=== PATIENT | female | born 1935 | race Caucasian/White ===

== ENCOUNTER 2016-05-27 11:14 | Inpatient (IN) | payer MEDICARE ==
[~2016-05-27 11:14] MED LIST changes: -COMMODE 3-IN-11 MIS; -DOCU1CAP39 PO; -DONE5TAB7 PO; -GETGO ROLLING W1 MI1; -HYDR-3516 PO; -HYDR-3583 PO; -NEUR300C PO; -ONCETAB7; -PANT40TA3 PO; -TIZA4 PO
--- NOTE | 2016-05-28 17:10 | MH ---
cc: DEMARIO MARCIAL M.D. Corrected: 06/03/16 DATE OF ADMISSION: 06/03/2016 ADMITTING DIAGNOSIS: Lumbar degenerative disk disease. HISTORY OF PRESENT ILLNESS This is an 80-year-old female presented to us for evaluation of low back pain and left leg pain for 4-5 years. She states the pain radiates into the left posterior thigh and medial calf and then the flow cramps which makes her for her. If she has a bad episode the right leg will also be affected. She states the left leg asael and she has fallen five to six times over the last year from the pain. She has associated paresthesias and left leg with the pain. She feels better with sitting. She had some frequently during the night secondary to pain. She has been to pain management a few years ago and had two sets of epidural steroid injection with Dr. Yepez. She has been to physical therapy which caused more pain. She has tried chiropractic treatments and acupuncture. She has also been seen in 2007 and elected on nonsurgical management. She states that the pain has since gotten worse and she cannot live with her current level of pain and activity restriction and she is requesting surgical intervention. PAST MEDICAL HISTORY 1. Significant for hyperlipidemia 2. Headaches 3. Hand surgery in 1979 4. Cholecystectomy 2009 5. Low back procedure in 1983. She is not sure what the name of the procedure was. MEDICATIONS current medication 1. She takes [place] 5/225 q.6 h p.r.n. pain. 2. Gabapentin 100 mg t.i.d. 3. Simvastatin 20 mg q.h.s. 4. Meloxicam 15 mg p.r.n. this was placed on hold prior to surgical intervention. 5. Zanaflex 4 mg q. hours. Muscle spasms. 6. Benazepril 5 mg q.h.s. 7. Arreno 200 mg daily. This was placed on hold prior to surgical intervention. FAMILY HISTORY Her mother is at 75 year's old had cancer. Her father is at 82 year's old had heart disease. Her sister is alive and 75 year's old. SOCIAL HISTORY She has three children. She lives alone. She does not smoke. She quit in 1969. She drinks alcohol on a rare occasion. REVIEW OF SYSTEMS CONSTITUTIONAL: She denies any fevers or chills. EAR, NOSE, AND THROAT: No fever or chills and ears, nose and throat no pharyngitis, exudates or bloody drainage from her nose CARDIOVASCULAR SYSTEM: She denies any chest pain or palpitations RESPIRATORY: No cough or shortness of breath. GENITOURINARY: No dysuria or hematuria. MUSCULOSKELETAL: Positive for low back pain. SKIN: No rashes. NEUROLOGIC: No difficulty with speech. Positive for his difficulty with memory. GASTROINTESTINAL: No abdominal pain and nausea or vomiting. PSYCHIATRIC: No anxiety or depression symptoms. ENDOCRINE: No polyuria, polydipsia. NEUROLOGIC: Positive for bruising but no bleeding tendencies. PHYSICAL EXAMINATION HEAD, EYES, EARS, NOSE, AND THROAT: Normocephalic, atraumatic. NECK: Supple. No carotid bruits heard on auscultation. LUNGS: The lungs are clear to auscultation bilaterally. HEART: Regular rate and rhythm, normal S1, S2. ABDOMEN: Soft, nontender. Positive bowel sounds. SKIN: Reveals no cyanosis or erythema. MUSCULOSKELETAL: She has 3+/5 left iliopsoas, strength otherwise her strength is 5/5 in lower extremities. She ambulates without any assistive devices. She has an obvious scoliosis. 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 NEUROLOGIC: She is awake, alert and oriented. Cranial nerves II-XII appear grossly intact. His speech is fluent. Comprehension is good. Sensation is decreased in the left lateral thigh, calf and medial calf otherwise intact in the extremities. Comprehension is good. Patellar reflexes 2+ bilaterally. Achilles reflexes are absent bilaterally. DATA REVIEWED: Reviewed MRI of the lumbar spine from April 28, 2015 which reveals extensive multilevel degenerative disk disease and facet arthropathy and associated multilevel spondylolisthesis and scoliosis. There is significant disk height collapse throughout the lumbosacral spine with a grade 1 L4, L5 and L5-S1 spondylolisthesis. There is severe facet hypertrophy in left L4, L5 level with associated severe foraminal stenosis. There is also facet hypertrophy at the L5-S1 level with disk protrusion and associated foraminal stenosis. PLAN We have discussed treatment options with the patient and she stated she is miserable with her level of discomfort and she is requesting that we proceed with surgical intervention. She has multilevel degenerative disk disease with associated spondylolisthesis and facet arthropathy along with scoliosis but worse symptomatic level appears to be the L4-L5 and L5 and S1 levels where there is significant facet arthropathy and disk protrusion and left-sided foraminal stenosis along with small spondylolisthesis. She has failed conservative measures with physical therapy and pain management. She cannot live with the current level discomfort activity restriction. PLAN We have discussed the treatment options with the patient which include a more limited left L4, L5 and L5-S1 laminotomy with foramen on a versus a transforaminal decompression interbody fusion. The procedure as well as the risk benefit, alternative recovery time were spent in great detail with the patient. We have discussed the risks involved surgery, which include but not limited to bleeding, infection, muscle weakness voice hoarseness, difficulty swallowing, heart attack, stroke blood clots, non fusion, scar tissue formation among others. The patient states that she understands the procedure as well as the risks involved and she was therefore scheduled accordingly. Demario Marcial MD DICTATED BY: CHRIS Alexander/jose de jesus /4:07 PM /7:18 AM
[2016-06-03] MEDS ORDERED: VANCOMYCIN HCL 1000 MG ON-CALL/NS 250 ML IV SCH ×2 (06:30)
[2016-06-03] MEDS ORDERED: INSULIN HUMAN REGULAR 1,000 UNITS/10 ML VIAL SQ PRN (06:45)
[2016-06-03] MEDS ORDERED: CHLORHEXIDINE GLUCONATE 2 % 1 PACK (2 CLOTHS) TOPICAL PRN (06:45)
[2016-06-03] MEDS ORDERED: METOPROLOL TARTRATE 25 MG TAB PO PRN (06:45)
[2016-06-03] MEDS ORDERED: SODIUM CHLORID 0.9% 500 ML IV PRN (06:45)
[2016-06-03] MEDS ORDERED: LACTATED RINGER'S 1000 ML IV PRN (06:45)
[2016-06-03] MEDS ORDERED: fentaNYL CITRATE 250 MCG/5 ML AMP ONE (07:26)
[2016-06-03] MEDS ORDERED: MIDAZOLAM HCL 2 MG/2 ML VIAL ONE (07:26)
[2016-06-03] MEDS ORDERED: VANCOMYCIN HCL 1000 MG VIAL ONE (07:45)
[2016-06-03] MEDS ORDERED: THROMBIN (TOPICAL) 5,000 UNIT VIAL ONE (07:45)
[2016-06-03] MEDS ORDERED: BUPIVACAINE/EPINEPHRINE 0.5% PF 30 ML VIAL ONE (07:45)
[2016-06-03] MEDS ORDERED: GELFOAM SIZE 100 ONE (07:45)
[2016-06-03] MEDS: THROMBIN (TOPICAL) 5,000 UNIT VIAL ONE ×2 (10:24→11:24)
[2016-06-03] MEDS ORDERED: ONDANSETRON HCL 4 MG/2 ML VIAL IV PUSH ONE (12:00)
[2016-06-03] MEDS ORDERED: LACTATED RINGER'S 1000 ML INJ 2,000 ML IV ONE (12:00)
[2016-06-03] MEDS ORDERED: ePHEDrine/NS 25 MG/5 ML SYR IV ONE (12:00)
[2016-06-03] MEDS ORDERED: PROPOFOL 200 MG/20 ML AMP IV ONE (12:00)
[2016-06-03] MEDS ORDERED: NEOSTIGMINE 3 MG/3 ML SYR IV ONE (12:00)
[2016-06-03] MEDS ORDERED: SODIUM CHLORID 0.9% 500 ML INJ 500 ML IV ONE (12:00)
[2016-06-03] MEDS ORDERED: ACETAMINOPHEN/HYDROcodone 325 MG/10 MG TAB PO PRN ×2 (13:45)
[2016-06-03] MEDS ORDERED: cloNIDine HCL 0.1 MG TAB PO PRN (13:45)
[2016-06-03] MEDS ORDERED: CYCLOBENZAPRINE HCL 10 MG TAB PO PRN (13:45)
[2016-06-03] MEDS ORDERED: diphenhydrAMINE HCL 50 MG/ML VIAL IV PRN (13:45)
[2016-06-03] MEDS ORDERED: MAGNESIUM HYDROXIDE SUSP 30 ML CUP PO PRN (13:45)
[2016-06-03] MEDS ORDERED: MAGNESIUM SULFATE INJ 2 GM in SODIUM CHLORIDE 0.9% INJ 100 ML IV PRN (13:45)
[2016-06-03] MEDS ORDERED: MENTHOL LOZENGE BUCCAL PRN (13:45)
[2016-06-03] MEDS ORDERED: MORPHINE SULFATE 30 MG/30 ML PCA IV SCH (13:45)
[2016-06-03] MEDS ORDERED: CALCIUM GLUCONATE INJ 1 GM in SODIUM CHLORIDE 0.9% INJ 100 ML IV PRN (13:45)
[2016-06-03] MEDS ORDERED: SODIUM CHLORIDE 0.9% FLUSH 10 ML FLUSH IV FLUSH PRN (13:45)
[2016-06-03] MEDS ORDERED: RESP: ALBUTEROL 2.5 MG/3 ML NEB (PRN) NEB (13:45)
[2016-06-03] MEDS ORDERED: ONDANSETRON HCL 4 MG/2 ML VIAL IV PRN (13:45)
[2016-06-03] MEDS ORDERED: POTASSIUM CHLOR 20 MEQ PREMIX 100 ML IV PRN (13:45)
[2016-06-03] MEDS ORDERED: NALOXONE HCL 0.4 MG/ML AMP IV PRN (13:45)
[2016-06-03] MEDS ORDERED: ALUMINUM/MAGNESIUM/SIMETH 30 ML CUP PO PRN (13:45)
[2016-06-03] MEDS ORDERED: ZOLPIDEM TARTRATE 5 MG TAB PO PRN (13:45)
--- NOTE | 2016-06-03 13:51 | PD.OP ---
cc: Zeinab Rao MD; Gurvinder Kirkland MD Operative Report Date of Surgery: Jun 03, 2016 Preoperative Diagnosis: Severe L4-5 and L5-S1 degenerative disc disease with facet arthropathy and disc protrusion and associated foraminal stenosis; grade 1 L4-5 and L5-S1 spondylolisthesis; postlaminectomy syndrome with extensive epidural fibrosis scar tissue Postoperative Diagnosis: Same Procedure: L4-5 and L5-S1 transforaminal decompression with interbody fusion; L4-S1 pedicle screw fixation; L4-5 and L5-S1 interbody cage placement; L4-5 and L5-S1 epidural scar tissue lysis; microsurgical technique Anesthesia: Gen. endotracheal by Byron Cruz Surgeon: Demario Cummings M.D. Maintenance Service Supervisor(s): Ann Cordero Operation and Findings: Following initiation of general endotracheal anesthesia, the patient had a Swan catheter placed along with sequential compression devices. A gram of vancomycin was administered intravenously and she was turned in a prone position on a Jono frame, on a [place] table, and all pressure points adequately padded. The lumbosacral region was then prepped with Chloraprep and sterilely draped with Ioban along the usual sterile draping. A left paraspinal skin incision was then made extending from the L4-S1 levels after infiltrating the skin with 0.5% Marcaine with epinephrine solution extending down through the fascia. The muscle fibers were split using avascular fatty plane and detached from the underlying facets, transverse process and a self-retaining retractor used for exposure. Intraoperative fluoroscopy was also used for level of confirmation along with microscope magnification for further dissection. There was significant facet and ligamentum flavum hypertrophy noted at the L4- 5 and L5-S1 levels. Wide laminectomy defect with extensive epidural fibrosis and scar tissue was evident. Left L4-5 and L5-S1 facets were resected with a drill bit and there was severe foraminal stenosis from hypertrophied ligamentum flavum and facet along with disc height collapse and degeneration with spondylolisthesis at both levels. The lateral recess and exiting left L4 and L5 nerve roots were decompressed completely. Epidural scar tissue lysis was also undertaken which was very extensive at the elbow L4-5 level wrapping around the exiting nerve root also. There was significant disc height collapse along with disc protrusion also leading to the foraminal stenosis at both levels. Epidural hemostasis was achieved with bipolar cautery and Gelfoam with thrombin. Subsequently entered into the disc space at the L4-5 as well as L5- S1 levels with a #15 blade and rusty were used for discectomy. I then placed PEEK cages packed with local autograft bone and more local autograft bone was packed adjacent to the cage in both interspaces for added interbody fusion. With placement of the cage, I was able to distract the interspace and opened up the foramen further bilaterally. Subsequently in order to facilitate the fusion and provide stabilization, pedicle screw fixation was undertaken using [place] spine screws on entry point at left L4, L5 and S1 levels at the junction of the transverse process and facet. Subsequently using AP and lateral fluoroscopy tap and screw placement. The screws were then connected with a stewart and locked in place with caps. The construct appeared very secure at this point. The area was then copiously irrigated with Vancomycin solution and powder. The retractors were removed and the bipolar cautery used for hemostasis. The muscle fascia was then approximated using 2-0 Vicryl interrupted stitches and then 3-0 Vicryl subcuticular stitches also placed in interrupted fashion. The final skin closure was completed with Dermabond absorbable mesh. A sterile dressing was then applied. The patient then turned in supine position, extubated and taken to recovery room. There were no intraoperative complications. All sponge and needle counts were correct at the end of procedure. Estimated blood loss about 500 ml. Demario Cummings MD Jun 03, 2016 13:51
[2016-06-03] MEDS ORDERED: PROCHLORPERAZINE INJ 10 MG/2 ML VIAL IV PUSH PRN (14:00)
[2016-06-03] MEDS: NS + KCL 20 MEQ INJ 1,000 ML IV SCH ×2 (14:00→20:04)
[2016-06-03] MEDS: PCA - TOTAL MG MORPHINE DELIVERED PER SHIFT SCH ×2 (14:00→21:58)
[2016-06-03 14:12] LABS: AUTOMATED NEUTROPHIL # 7.1 TH/MM3 (1.8-7.7); BASOPHIL % 0.3 % (0.0-2.0); EOSINOPHIL % 0.4 % (0.0-4.0); HEMATOCRIT 31.8 % (35.0-46.0); HEMO FLAGS DIFF FINAL; LYMPHOCYTE # 1.1 TH/MM3 (1.0-4.8); MEAN CELL VOLUME 90.6 FL (80.0-100.0); MEAN CORPUSCULAR HEMOGLOBIN 30.1 PG (27.0-34.0); MEAN CORPUSCULAR HGB CONC 33.2 % (32.0-36.0); MONO % 2.4 % (0.0-8.0); NEUT % 83.9 % (16.0-70.0); PLATELET COUNT 212 TH/MM3 (150-450); RED BLOOD COUNT 3.51 MIL/MM3 (4.00-5.30); RED CELL DISTRIBUTION WIDTH 12.6 % (11.6-17.2); WHITE BLOOD COUNT 8.5 TH/MM3 (4.0-11.0)
[2016-06-03] MEDS ORDERED: *morphine SULFATE 8 MG/ML PERIprocedure ONLY ONE (14:28)
[2016-06-03 14:30] LABS: BICARBONATE 25.7 MEQ/L (21.0-32.0); MAGNESIUM 2.1 MG/DL (1.5-2.5); POTASSIUM 4.2 MEQ/L (3.5-5.1)
--- NOTE | 2016-06-03 14:41 | RADRPT ---
EXAM DATE/TIME: 06/03/2016 08:44 [facility] COMPARISON: No previous studies available for comparison. INDICATIONS : L4-5 L5-S1 fusion. MEDICAL HISTORY : None. SURGICAL HISTORY : None. ENCOUNTER: Initial ACUITY: 1 day PAIN SCORE: Non-responsive. LOCATION: Left L4-5, L5-S1 FINDINGS: Coned-down lateral and oblique views of the lower lumbar spine were obtained using a matrix camera de monstrate the patient is status post multilevel fusion would appear to be the L4-5 and L5-S1 levels w ith pedicle screws and posterior fixation rods. There are metallic markers and bone grafting material and interspaces. There is apparent grade 1 anterior spondylolisthesis of L5 on S1. CONCLUSION: Status post multilevel fusion. Douglas Jama MD on June 03, 2016 at 14:38 Board Certified Radiologist. This report was verified electronically.
[2016-06-03 16:30] VITALS: BP 116/58; PULSE 56; RESP 19; TEMP 95.7; O2SAT 95
[2016-06-03 17:56] VITALS: O2SAT 99
[2016-06-03] MEDS ORDERED: GABAPENTIN 100 MG CAP PO SCH (18:00)
[2016-06-03 20:00] VITALS: BP 120/56; PULSE 54; RESP 20; TEMP 97.4; O2SAT 97
[2016-06-03] MEDS: SODIUM CHLORIDE 0.9% FLUSH 10 ML FLUSH IV FLUSH SCH (20:05)
[2016-06-03] MEDS: DOCUSATE SODIUM 100 MG CAP PO SCH (20:05)
[2016-06-03] MEDS: PRAVASTATIN SOD 40 MG TAB PO SCH (20:05)
[2016-06-03] MEDS: DONEPEZIL HCL 5 MG TAB PO SCH (20:05)
[2016-06-03] MEDS: SODIUM CHLOR 0.9% 1000 ML INJ 1,000 ML IV SCH (20:06)
[2016-06-03 22:02] VITALS: O2SAT 98
[2016-06-04] VITALS (11 sets, daily range): BP systolic 101–148; BP diastolic 51–83; PULSE 50–71; RESP 16–20; TEMP 95.1–98.8; O2SAT 93–100
[2016-06-04] MEDS: PCA - TOTAL MG MORPHINE DELIVERED PER SHIFT SCH ×3 (06:00→22:00)
[2016-06-04] MEDS: GABAPENTIN 100 MG CAP PO SCH ×3 (07:55→18:00)
[2016-06-04] MEDS: MULTIVITAMIN TAB PO SCH (07:56)
[2016-06-04] MEDS: DOCUSATE SODIUM 100 MG CAP PO SCH ×2 (07:56→21:00)
[2016-06-04] MEDS: PANTOPRAZOLE SOD 40 MG DELAYED RELEASE TAB PO SCH (07:56)
[2016-06-04] MEDS: POLYETHYLENE GLYCOL 17 GM PKG PO SCH (07:56)
[2016-06-04] MEDS: SODIUM CHLORIDE 0.9% FLUSH 10 ML FLUSH IV FLUSH SCH ×2 (07:56→21:49)
[2016-06-04] MEDS ORDERED: SOLIFENACIN 5 MG PO SCH (09:00)
--- NOTE | 2016-06-04 09:20 | HHI.NSPN ---
(Martin Puentes) History Chief Complaint: Incisional back pain. (Martin Puentes) Interval History 06/04/16: Pt s/p L4/L5 and L5/S1 TLIF with cage and pedicle screw fixation on . She is sitting up in chair this morning. Complains of incisional pain controlled with [employer]. She denies any radiculopathy in her legs so far. She has not ambulated far yet on POD 1. (Martin Puentes) Review of Systems General: Negative for: fever, chills, insomnia Respiratory: Negative for: shortness of breath, cough, sputum Cardiovascular: Negative for: chest pain Gastrointestinal: Negative for: nausea, vomitting, diarrhea, constipation ( Martin Puentes) Exam Results Vital Signs Date Time Temp Pulse Resp B/P Pulse Ox O2 Delivery O2 Flow Rate FiO2 06/04/16 07:26 97.7 51 17 121/57 96 06/03/16 22:02 Nasal Cannula 2.00 Intake and Output 06/03/16 06/03/16 06/04/16 08:00 16:00 00:00 Intake Total 3000 ml 1080 ml Output Total 1325 ml 950 ml Balance 1675 ml 130 ml (Martin Puentes) Physical Examination Heart: NSR no murmurs Abd: Soft positive bs Skin: No cyanosis or erythema Muscle: Moves all 4 extremities with good strength. Neuro: Pt awake and alert. Follows commands well. Speech clear and appropriate. (Martin Puentes) Lab, Micro, Other Results Last Impressions Lumbar Spine X-Ray 06/03/16 0000 Signed Impressions: Service Date/Time: May 08:44 - CONCLUSION: Status post multilevel fusion. Douglas Jama MD Laboratory Tests Test 06/03/16 14:00 White Blood Count 8.5 TH/MM3 Red Blood Count 3.51 MIL/MM3 Hemoglobin 10.6 GM/DL Hematocrit 31.8 % Mean Corpuscular Volume 90.6 FL Mean Corpuscular Hemoglobin 30.1 PG Mean Corpuscular Hemoglobin 33.2 % Concent Red Cell Distribution Width 12.6 % Platelet Count 212 TH/MM3 Mean Platelet Volume 7.6 FL Neutrophils (%) (Auto) 83.9 % Lymphocytes (%) (Auto) 13.0 % Monocytes (%) (Auto) 2.4 % Eosinophils (%) (Auto) 0.4 % Basophils (%) (Auto) 0.3 % Neutrophils # (Auto) 7.1 TH/MM3 Lymphocytes # (Auto) 1.1 TH/MM3 Monocytes # (Auto) 0.2 TH/MM3 Eosinophils # (Auto) 0.0 TH/MM3 Basophils # (Auto) 0.0 TH/MM3 CBC Comment DIFF FINAL Differential Comment Sodium Level 144 MEQ/L Potassium Level 4.2 MEQ/L Chloride Level 111 MEQ/L Carbon Dioxide Level 25.7 MEQ/L Anion Gap 7 MEQ/L Blood Urea Nitrogen 23 MG/DL Creatinine 0.90 MG/DL Estimat Glomerular Filtration 60 ML/MIN Rate Random Glucose 131 MG/DL Calcium Level 9.0 MG/DL Magnesium Level 2.1 MG/DL 06/03/16 06/03/16 06/04/16 15:00 23:00 07:00 Intake Total 2500 ml 1580 ml 874 ml Output Total 900 ml 1375 ml 1100 ml Balance 1600 ml 205 ml -226 ml Intake Oral 480 ml IV Total 1100 ml 874 ml Other 2500 ml Output Urine Total 400 ml 1375 ml 1100 ml Estimated Blood Loss 500 ml (Martin Puentes) Medical Decision Making Impression and Plan A: 80 y/o FM s/p L4/L5 and L5/S1 TLIF with cage and pedicle screw fixation. P: Continue with pain control Continue with PT (Martin Puentes) Attending Statement The exam, history, and the medical decision-making described in the above note were completed with the assistance of the mid-level provider. I reviewed and agree with the findings presented. I attest that I had a [id number] encounter with the patient on the same day, and personally performed and documented my assessment and findings in the medical record. Incisional pain well controlled and the left lower extremity radicular symptoms have resolved. Continue with [employer] and switched to by mouth pain medications tomorrow. Plan inpatient rehabilitation placement. (eDmario Cummings MD) Martin Puentes Jun 04, 2016 09:20 Demario Cummings MD Jun 04, 2016 17:03
[2016-06-04] MEDS: NS + KCL 20 MEQ INJ 1,000 ML IV SCH (14:43)
[2016-06-04] MEDS ORDERED: LORazepam 2 MG/ML VIAL ONE (17:08)
--- NOTE | 2016-06-04 17:22 | PD.CONS ---
[facility] Service Critical Care Medicine Consult Requested By Dr. Cummings Reason for Consult Possible new onset seizures Primary Care Physician Gurvinder Kirkland MD History of Present Illness Patient is a 80-year-old female with past medical history significant for dyslipidemia and previous back surgeries who underwent L4/L5 and L5/S1 TLIF with cage and pedicle screw fixation on 06/03/16. Postop period was unremarkable. Today afternoon patient was noted to have 2 episodes of seizure- like activity where she had tonic-clonic jerking of bilateral upper and lower extremities. She did not loose consciousness, and was able to follow commands through this. Patient was moved emergently to the ICU where she had 2 more episodes. Received total of 1 mg Ativan with resolution of symptoms. No history of seizure disorder, takes Neurontin for neuropathy. A stat CT of the head had been ordered, as well as a stat EEG. Loading dose of Keppra 1 gm given. Ruiz culture and blood work pending at this time. Neurology consult requested and d/w Dr. Hong Review of Systems ROS Limitations: Other (as per HPI) Past Family Social History Allergies: Coded Allergies: Adhesives (Verified Allergy, Severe, RASH, 05/27/16) Iodine (Verified Allergy, Severe, RASH, 05/27/16) Latex (Verified Allergy, Severe, 05/27/16) Shellfish (Verified Allergy, Severe, RASH, 05/27/16) Past Medical History Dyslipidemia Headaches Past Surgical History Hand surgery in 1979 Cholecystectomy 2010 Low back procedure in 1983. Reported Medications [place] 5/225 q.6 h p.r.n. pain. Gabapentin 100 mg t.i.d. Simvastatin 20 mg q.h.s. Meloxicam 15 mg p.r.n. Zanaflex 4 mg q. hours. Benazepril 5 mg q.h.s. Aggrenox Active Ordered Medications Reviewed Family History Reviewed Social History Occasional alcohol Physical Exam Vital Signs Vital Signs Date Time Temp Pulse Resp B/P Pulse Ox O2 Delivery O2 Flow Rate FiO2 06/04/16 15:47 95.7 50 17 105/53 98 06/04/16 13:45 96 21 06/04/16 11:18 95.1 50 17 101/51 95 06/04/16 07:50 Room Air 06/04/16 07:26 97.7 51 17 121/57 96 06/04/16 06:00 17 06/04/16 04:00 97.4 61 17 127/63 99 06/04/16 00:00 96.9 51 16 106/52 98 06/03/16 22:02 98 Nasal Cannula 2.00 06/03/16 21:58 17 06/03/16 20:04 98 Nasal Cannula 3.00 06/03/16 20:00 97.4 54 20 120/56 97 06/03/16 17:56 99 Nasal Cannula 3.00 Physical Exam GEN: 80 yo female having jerking movements involving bilateral upper and lower extremities HEENT: Normocephalic, atraumatic. NECK: Supple. No carotid bruits heard on auscultation. LUNGS: The lungs are clear to auscultation bilaterally. HEART: Regular rate and rhythm, normal S1, S2. ABDOMEN: Soft, nontender. Positive bowel sounds. SKIN: Reveals no cyanosis or erythema. NEUROLOGIC: She is awake, alert and oriented. Cranial nerves II-XII appear grossly intact. Normal speech. Intermittent jerking seizure like movements involving bilateral upper and lower extremities. Result Diagram: 06/03/16 1400 06/03/16 1400 Imaging CXR No acute disease Assessment and Plan Assessment and Plan NEURO: Possible seizures vs myoclonus s/p L4/L5 and L5/S1 TLIF with cage and pedicle screw fixation on 06/03/16 Small amount of pneumocephalus from recent lumbar surgery -STAT EEG, and CT head -IV Keppra 1GM loading dose and 500 mg IV q12 -Consult neurology -Seizure precautions -Ativan 1 mg IV q 2 hours prn for seizures -Post op management per Dr. Cummings -Continue Neurontin. Hold Aggrenox RESP: -Nasal cannula oxygen to keep SaO2 >90% -DuoNeb q2 prn CV: -Normal saline IV fluids -Continue Statin -Monitor BP and HR GI: -NPO except meds. IV Protonix : Monitor renal function closely. Place Swan catheter. ID: -F/u blood urine and sputum cultures. Received perioperative antibiotics per HEME: -Monitor CBC, CMP, coags ENDO: -Electrolyte replacement per protocol PROPH: -Bilateral lower extremity SCDs. TEDs. Chemical DVT prophylaxis only when cleared by N/S LINES: -Utilize peripheral IVs, central line if needed CC time 45 min Code Status Full Discussed Condition With Veto Abdalla Sinoj K. MD Jun 04, 2016 17:22
[2016-06-04] MEDS ORDERED: LORazepam 2 MG/ML VIAL IV PUSH PRN (17:30)
[2016-06-04] MEDS ORDERED: levETIRAcetam 1000 MG INJ 100 ML IV ONE (17:30)
[2016-06-04] MEDS ORDERED: LORazepam 2 MG/ML VIAL IV PUSH ONE (17:30)
--- NOTE | 2016-06-04 17:43 | RADRPT ---
EXAM DATE/TIME: 06/04/2016 17:23 [facility] COMPARISON: No previous studies available for comparison. INDICATIONS : Evaluate for pneumonia. Shortness of breath. MEDICAL HISTORY : None. SURGICAL HISTORY : None. ENCOUNTER: Subsequent ACUITY: 1 day PAIN SCORE: 0/10 LOCATION: Bilateral chest FINDINGS: A single view of the chest demonstrates the lungs to be symmetrically aerated without evidence of mas s, infiltrate or effusion. The cardiomediastinal contours are unremarkable. Osseous structures are intact. CONCLUSION: No acute disease. Douglas Jama MD on June 04, 2016 at 17:39 Board Certified Radiologist. This report was verified electronically.
[2016-06-04 17:49] LABS: MEAN CELL VOLUME 91.9 FL (80.0-100.0); MEAN CORPUSCULAR HEMOGLOBIN 30.4 PG (27.0-34.0); MEAN CORPUSCULAR HGB CONC 33.1 % (32.0-36.0); PLATELET COUNT 153 TH/MM3 (150-450); RED BLOOD COUNT 2.72 MIL/MM3 (4.00-5.30); RED CELL DISTRIBUTION WIDTH 12.5 % (11.6-17.2); REVIEW FLAG FINAL; WHITE BLOOD COUNT 7.6 TH/MM3 (4.0-11.0)
--- NOTE | 2016-06-04 18:08 | RADRPT ---
EXAM DATE/TIME: 06/04/2016 17:51 [facility] COMPARISON: No previous studies available for comparison. INDICATIONS : Seizures starting today. RADIATION DOSE: 41.25 CTDIvol (mGy) MEDICAL HISTORY : CVA SURGICAL HISTORY : None. ENCOUNTER: Initial ACUITY: 1 day PAIN SCALE: Non-responsive LOCATION: Bilateral cranial TECHNIQUE: Multiple contiguous axial images were obtained of the head. Using automated exposure control and adj ustment of the mA and/or kV according to patient size, radiation dose was kept as low as reasonably a chievable to obtain optimal diagnostic quality images. FINDINGS: CEREBRUM: The ventricles are normal for age. No evidence of midline shift, mass lesion, hemorrhage or acute in farction. There is air within the fossa lateral ventricles and in the subarachnoid space in the right mahsa-pontine cisterna lateral to the libia. The patient had recent back surgery. No extra-axial fluid collections are seen. POSTERIOR FOSSA: The cerebellum and brainstem are intact. The 4th ventricle is midline. The cerebellopontine angle i s unremarkable. EXTRACRANIAL: The visualized portion of the orbits is intact. SKULL: The calvaria is intact. No evidence of skull fracture. CONCLUSION: Intracranial air. The patient had recent lumbar surgery. No acute areas of hemorrhage or mass effect are seen. Veto Philippe MD on June 04, 2016 at 18:02 Board Certified Radiologist. This report was verified electronically.
[2016-06-04 18:25] LABS: ALKALINE PHOSPHATASE 48 U/L (45-117); ALT (GPT) 23 U/L (10-53); ANION GAP 3 MEQ/L (5-15); AST (GOT) 34 U/L (15-37); BICARBONATE 26.4 MEQ/L (21.0-32.0); BLOOD UREA NITROGEN 12 MG/DL (7-18); CHLORIDE 115 MEQ/L (98-107); GLOMERULAR FILTRATION RATE 86 ML/MIN (>89); MAGNESIUM 1.7 MG/DL (1.5-2.5); POTASSIUM 6.2 MEQ/L (3.5-5.1); SODIUM (NA) 144 MEQ/L (136-145); TOTAL BILIRUBIN ADULT 0.4 MG/DL (0.2-1.0)
[2016-06-04] MEDS ORDERED: MAGNESIUM SULFATE 1 GM PREMIX 100 ML IV ONE (18:45)
[2016-06-04] MEDS ORDERED: SODIUM BICARBONATE 8.4% INJ 50 MEQ/50 ML SYR IV PUSH ONE (18:45)
[2016-06-04] MEDS ORDERED: INSULIN HUMAN REGULAR 1,000 UNITS/10 ML VIAL IV PUSH ONE (18:45)
[2016-06-04] MEDS ORDERED: DEXTROSE 50% IN WATER 50 ML SYRINGE IV ONE (18:45)
[2016-06-04] MEDS ORDERED: CALCIUM GLUCONATE 10% 1 GM/10 ML VIAL ONE (18:46)
--- NOTE | 2016-06-04 19:57 | MG ---
cc: RAMÓN BERUMEN Lab No: [id number] Date: 06/04/16 Age: 80 Sex: F Race: REFERRING PHYSICIAN Dr. Laws TECHNIQUE 17 channel EEG. DESCRIPTION The background rhythm reveals mild slowing mainly in the theta range at about 5-6 Hz. Amplitude is roughly 10-20 microvolts. There is a prominent muscle artifact. No lateralizing features are identified. There are no epileptiform features seen. Photic stimulation was done in a stepwise fashion with no significant driving response. Hyperventilation was not done. INTERPRETATION The study reveals mild to moderate slowing in the theta range consistent with a mild to moderate encephalopathy. No epileptiform discharges are present. MD JOSE Bond/MARBELLA /7:26 PM /7:41 PM
[2016-06-04] MEDS ORDERED: CALCIUM GLUCONATE INJ 1 GM in SODIUM CHLORIDE 0.9% INJ 100 ML IV ONE (20:00)
[2016-06-04] MEDS ORDERED: ATROPINE SULFATE 1 MG/10 ML SYRINGE ONE (20:14)
[2016-06-04] MEDS ORDERED: EPINEPHrine HCL (1:10,000) 1 MG/10 ML SYRINGE ONE (20:14)
[2016-06-04] MEDS ORDERED: LIDOCAINE HCL 2% 100 MG/5 ML SYRINGE ONE (20:14)
[2016-06-04] MEDS: DONEPEZIL HCL 5 MG TAB PO SCH (21:00)
[2016-06-04] MEDS: PRAVASTATIN SOD 40 MG TAB PO SCH (21:00)
[2016-06-04] MEDS: SODIUM CHLORIDE 0.9% IV SCH (21:48)
[2016-06-04] MEDS: VALPROATE IV SCH (21:48)
--- NOTE | 2016-06-04 21:58 | RADRPT ---
EXAM DATE/TIME: 06/04/2016 21:13 [facility] COMPARISON: No previous studies available for comparison. INDICATIONS : Radiculopathy. RADIATION DOSE: 21.36 CTDIvol (mGy) MEDICAL HISTORY : Cerebrovascular disease. SURGICAL HISTORY : None. ENCOUNTER: Initial ACUITY: 1 day PAIN SCALE: Non-responsive LOCATION: Neck TECHNIQUE: Volumetric scanning of the cervical spine was performed. Multiplanar reconstructions i n the sagittal, coronal and oblique axial planes were performed. Using automated exposure control a nd adjustment of the mA and/or kV according to patient size, radiation dose was kept as low as reason ably achievable to obtain optimal diagnostic quality images. FINDINGS: The craniovertebral junction is intact. The C1 ring is intact. The C1-C2 articulation and dens are intact. The cervical vertebral bodies are normal in height. There is 3 mm of anterior subluxation of C4 on C5 likely secondary to facet hypertrophy. There is 2 mm of posterior subluxati on of C5 on C6 likely secondary to facet hypertrophy. C2-C3: The posterior disc margins intact. The neural foramina are normal. There is mild facet hype rtrophy bilaterally being worse on the left. C3-C4: There is an impression on the anterior left side of the thecal sac likely secondary to asymme tric disc bulge versus protrusion with accompanying osteophyte formation. There is bilateral uncover tebral hypertrophy and facet hypertrophy. There is mild narrowing of the left neural foramina. The r ight neural foramina appears grossly intact. C4-C5: Again noted is the anterior subluxation of C4 on C5. There is bilateral facet and uncoverteb ral hypertrophy. There is narrowing of the neural foramina bilaterally. C5-C6: Disc space is narrowed. There is posterior osteophytic ridging. There is uncovertebral and f acet hypertrophy. There is some degree of narrowing of the neural foramina bilaterally. C6-C7: Disc space is narrowed. A significant impression on the thecal sac is not seen. There is unc overtebral and facet hypertrophy. There is mild neural foraminal narrowing. C7-T1: Intact. CONCLUSION: Degenerative change as described above. An acute bony abnormality is not seen. Veto Philippe MD on June 04, 2016 at 21:44 Board Certified Radiologist. This report was verified electronically.
[2016-06-04] MEDS: DEXT 5%-NACL 0.9% 1000 ML INJ 1,000 ML IV SCH (22:54)
--- NOTE | 2016-06-04 23:07 | MB ---
cc: RAMÓN BERUMEN DATE OF CONSULTATION 06/04/16 REASON FOR CONSULTATION Upper extremity myoclonic activity. HISTORY OF PRESENT ILLNESS Ms. Matthews is an 80-year-old female who has a history of lumbar spondylosis. She underwent lumbar spine surgery yesterday. Today, she developed generalized jerking like activity, tonic-clonic activity of both lower extremities, also the upper extremities. She had continuous episodes, received Ativan with resolution of the symptoms. She has been placed on Keppra but continues to have the jerking episodes. I reviewed the electroencephalogram and that does not show any type of seizure activity. No epileptiform discharges. PAST MEDICAL HISTORY 1. History of lumbar spondylosis 2. history of previous lumbar spine surgery, 3. Cholecystectomy, 4. Hyperlipidemia. MEDICATIONS Current medications are 1. Keppra 500 mg q.6 h. 2. Magnesium sulfate 3. Ativan 4. Protonix 40 mg daily. 5. MiraLax, 6. Gabapentin 200 mg t.i.d. 7. Aricept 5 mg daily. 8. Pravachol 40 mg daily. 9. Zanaflex 4 mg t.i.d. NEUROLOGIC EXAMINATION VITAL SIGNS: Blood pressure 140/59, pulse is 60, respiratory rate is 20, temperature 98 degrees. She is lethargic but follows commands. Cranial nerves are intact. On motor exam, she has myoclonic twitching activity in both upper extremities which is nearly continuous. It gets worse when she raises her arms though. She is able to move both upper and lower extremities symmetrically. Reflexes symmetric. There is no Babinski sign present. IMAGING STUDIES CT of the brain shows air present in the lateral ventricle subarachnoid space in the right pontine cistern area probably related to her recent back surgery. No hemorrhage is identified. No acute changes seen. LABORATORY DATA White count 7600, hemoglobin 8.3, hematocrit 25%, platelets 153,000. Sodium is 144, potassium 4.2, chloride 111, CO2 is 25.7. The BUN is 23, creatinine is 0.9, GFR 60, glucose is 130, AST 74, ALT is 23. 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 RECOMMENDATIONS We will start the patient on Depakote, continue the Keppra. Check additional labs such as B12 level, thyroid, serum ammonia. Also get a CT of the cervical spine to be sure there is no cervical cord pathology. MD JOSE Bond/ /7:30 PM /10:52 PM
[2016-06-04] MEDS: levETIRAcetam INJ 500 MG in SODIUM CHLORIDE 0.9% INJ 100 ML IV SCH (23:59)
[2016-06-05] VITALS (16 sets, daily range): BP systolic 108–132; BP diastolic 52–60; PULSE 39–105; RESP 16–22; TEMP 97.8–99.3; O2SAT 95–100
[2016-06-05 00:11] LABS: POTASSIUM 4.2 MEQ/L (3.5-5.1)
[2016-06-05 01:40] LABS: BLOOD, URINE NEG (NEG); GLUCOSE,URINE NEG (NEG); KETONE, URINE NEG (NEG); MUCUS URINE FEW /lpf (OCC); NITRITE,URINE NEG (NEG); PH, URINE 5.5 (5.0-8.5); URINE COLOR LIGHT-YELLOW (YELLW/STRAW)
[2016-06-05] MEDS: levETIRAcetam INJ 500 MG in SODIUM CHLORIDE 0.9% INJ 100 ML IV SCH ×2 (04:06→11:52)
[2016-06-05] MEDS: SODIUM CHLORIDE 0.9% IV SCH (04:06)
[2016-06-05] MEDS: VALPROATE IV SCH (04:06)
[2016-06-05] MEDS ORDERED: levETIRAcetam INJ 500 MG in SODIUM CHLORIDE 0.9% INJ 100 ML IV SCH (06:00)
[2016-06-05] MEDS: PCA - TOTAL MG MORPHINE DELIVERED PER SHIFT SCH (06:00)
--- NOTE | 2016-06-05 06:27 | RADRPT ---
EXAM DATE/TIME: 06/05/2016 04:16 [facility] COMPARISON: CHEST SINGLE AP, June 04, 2016, 17:23. INDICATIONS : Shortness of breath, possible pulmonary disease. MEDICAL HISTORY : None. SURGICAL HISTORY : None. ENCOUNTER: Subsequent ACUITY: 2 days PAIN SCORE: Non-responsive. LOCATION: Bilateral chest FINDINGS: Trace basilar atelectasis, mainly on the left. No large effusion seen. No pneumothorax. Heart size st able, upper limits of normal. Thoracic aorta is tortuous. CONCLUSION: Trace left base atelectasis. Veto Ferreira MD on June 05, 2016 at 6:25 Board Certified Radiologist. This report was verified electronically.
[2016-06-05] MEDS: SODIUM CHLOR 0.9% 1000 ML INJ 1,000 ML IV SCH (06:29)
--- NOTE | 2016-06-05 07:13 | HHI.CCPN ---
Subjective Remarks/Hospital Course Patient is a 80-year-old female with past medical history significant for dyslipidemia and previous back surgeries who underwent L4/L5 and L5/S1 TLIF with cage and pedicle screw fixation on 06/03/16. Postop period was unremarkable. Today afternoon patient was noted to have 2 episodes of seizure- like activity where she had tonic-clonic jerking of bilateral upper and lower extremities. She did not loose consciousness, and was able to follow commands through this. Patient was moved emergently to the ICU where she had 2 more episodes. Received total of 1 mg Ativan with resolution of symptoms. No history of seizure disorder, takes Neurontin for neuropathy. A stat CT of the head had been ordered, as well as a stat EEG. Loading dose of Keppra 1 gm given. Ruiz culture and blood work pending at this time. Neurology consult requested and d/w Dr. Hong SUBJ 06/05: EEG no seizure. According to neurology Dr. Hong, possible myoclonic jerks. Lab work unremarkable so far. No evidence of infection Objective Vital Signs Date Time Temp Pulse Resp B/P Pulse Ox O2 Delivery O2 Flow Rate FiO2 06/05/16 06:00 73 06/05/16 06:00 18 06/05/16 04:00 99.3 125/58 99 06/05/16 03:53 Nasal Cannula 4.00 06/04/16 13:45 21 Intake and Output 06/04/16 06/04/16 06/05/16 08:00 16:00 00:00 Intake Total 874 ml 1256 ml 485 ml Output Total 1100 ml 150 ml 1000 ml Balance -226 ml 1106 ml -515 ml Result Diagram: 06/04/16 1736 06/04/16 2240 Imaging CXR No acute disease Objective Remarks GEN: 80 yo female having jerking movements involving bilateral upper and lower extremities HEENT: Normocephalic, atraumatic. NECK: Supple. No carotid bruits heard on auscultation. LUNGS: The lungs are clear to auscultation bilaterally. HEART: Regular rate and rhythm, normal S1, S2. ABDOMEN: Soft, nontender. Positive bowel sounds. SKIN: Reveals no cyanosis or erythema. NEUROLOGIC: She is awake, alert and oriented. Cranial nerves II-XII appear grossly intact. Normal speech. Intermittent jerking seizure like movements involving bilateral upper and lower extremities. A/P Assessment and Plan NEURO: Possible seizures vs myoclonus s/p L4/L5 and L5/S1 TLIF with cage and pedicle screw fixation on 06/03/16 Small amount of pneumocephalus from recent lumbar surgery -EEG-mild to mod encephalopathy, no seizures, CT head-small amount of pneumocephalus -IV Keppra 1GM loading dose 06/04 and 500 mg IV q12. Depakote started by Dr. Hong -Seizure precautions -Ativan 1 mg IV q 2 hours prn for seizures/myoclonus -Continue Neurontin. Hold Aggrenox -Post op management per Dr. Cummings RESP: -Nasal cannula oxygen to keep SaO2 >90% -DuoNeb q2 prn -EzPAP, Acapella, aggressive pulm toilet CV: -Normal saline IV fluids -Continue Statin -Monitor BP and HR GI: -Resume regular diet. IV Protonix : Monitor renal function closely. Swan catheter. ID: -F/u blood urine and sputum cultures. Received perioperative antibiotics per HEME: -Monitor CBC, CMP, coags ENDO: -Electrolyte replacement per protocol PROPH: -Bilateral lower extremity SCDs. TEDs. Chemical DVT prophylaxis only when cleared by N/S LINES: -Utilize peripheral IVs, central line if needed Level 2 Maykel Laws MD Jun 05, 2016 07:13
[2016-06-05] MEDS: MULTIVITAMIN TAB PO SCH (09:00)
[2016-06-05] MEDS: GABAPENTIN 100 MG CAP PO SCH ×3 (09:00→17:37)
[2016-06-05] MEDS: DOCUSATE SODIUM 100 MG CAP PO SCH ×2 (09:00→20:35)
[2016-06-05] MEDS: PANTOPRAZOLE SOD 40 MG DELAYED RELEASE TAB PO SCH (09:00)
[2016-06-05] MEDS: POLYETHYLENE GLYCOL 17 GM PKG PO SCH (09:00)
[2016-06-05] MEDS ORDERED: MORPHINE SULFATE 4 MG/ML INJ IV PUSH PRN (10:45)
--- NOTE | 2016-06-05 11:12 | HHI.NSPN ---
History Chief Complaint: Incisional back pain. Interval History 06/04/16: Pt s/p L4/L5 and L5/S1 TLIF with cage and pedicle screw fixation on . 06/05/16: She was doing well but developed tonic-clonic jerking movements yesterday. Neurology was consulted and she was started on antiepileptics. EEG was negative. CT of the brain with some pneumocephalus. CT of the cervical spine showed multilevel spondylotic changes but no acute fractures. Exam Results Vital Signs Date Time Temp Pulse Resp B/P Pulse Ox O2 Delivery O2 Flow Rate FiO2 06/05/16 07:00 95 Nasal Cannula 4.00 06/05/16 06:00 73 06/05/16 06:00 18 06/05/16 04:00 99.3 125/58 06/04/16 13:45 21 Intake and Output 06/04/16 06/04/16 06/05/16 08:00 16:00 00:00 Intake Total 874 ml 1256 ml 485 ml Output Total 1100 ml 150 ml 1000 ml Balance -226 ml 1106 ml -515 ml Physical Examination Heart: NSR no murmurs Abd: Soft positive bs Skin: No cyanosis or erythema Muscle: Upper extremities with strength 5 out of 5. In the lower extremities she is limited to pain but able to move them at least antigravity Neuro: Pt awake and alert. Follows commands well. Speech clear and appropriate. Wound: In good healing process and dry. Medical Decision Making Impression and Plan A: 80 y/o FM s/p L4/L5 and L5/S1 TLIF with cage and pedicle screw fixation. Yesterday with an episode of tonic-clonic movements but not clear evidence of epileptic activity. Dr. Hong from neurology following. P: Continue with pain control Continue with PT Percy Narayan MD Jun 05, 2016 11:12
[2016-06-05] MEDS: SODIUM CHLORIDE 0.9% FLUSH 10 ML FLUSH IV FLUSH SCH ×2 (11:50→20:35)
[2016-06-05 12:07] LABS: POTASSIUM 4.1 MEQ/L (3.5-5.1)
--- NOTE | 2016-06-05 15:09 | HHI.PR ---
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 Has had no jerking activity of the limbs today Active Medications Current Medications Medications (Trade) Dose Ordered Sig/Kristen Route Start Time Stop Time Status Last Admin (NS 500 ml Inj) 500 ml @ 30 mls/hr [id number] PRN IV 06/03/16 06:45 06/06/16 06:44 (Aricept) 5 mg HS PO 06/03/16 21:00 06/03/16 20:05 (Theragran) 1 tab DAILY PO 06/04/16 09:00 06/04/16 07:56 (Zanaflex) 4 mg TID PO 06/03/16 18:00 06/04/16 12:59 Non-Formulary Medication 1 cap DAILY PO 06/04/16 09:00 UNV (Pravachol) 40 mg HS PO 06/03/16 21:00 06/03/16 20:05 Patient Own Medication PT OWN MED: Solifena... DAILY PO 06/04/16 09:00 Hold (Narcan Inj) 0.4 mg UNSCH PRN IV 06/03/16 13:45 (Benadryl Inj) 25 mg Q6H PRN IV 06/03/16 13:45 (NS Flush) 2 ml UNSCH PRN IV FLUSH 06/03/16 13:45 (NS Flush) 2 ml BID IV FLUSH 06/03/16 21:00 06/05/16 11:50 (Colace) 100 mg BID PO 06/03/16 21:00 06/04/16 07:56 (Milk Of Magnesia Liq) 30 ml DAILY PRN PO 06/03/16 13:45 (Mag-Al Plus Susp Liq) 30 ml Q6H PRN PO 06/03/16 13:45 (Protonix) 40 mg DAILY PO 06/04/16 09:00 06/04/16 07:56 Ondansetron HCl 4 mg 4 mg Q6H PRN IV 06/03/16 13:45 Calcium Gluconate 1 gm/Sodium Chloride 110 ml @ 110 mls/hr UNSCH PRN IV 06/03/16 13:45 Potassium Chloride 100 ml @ 50 mls/hr UNSCH PRN IV 06/03/16 13:45 (Magnesium Sulfate Inj/NS Inj) 104 ml @ 100 mls/hr UNSCH PRN IV 06/03/16 13:45 ([place] 10-325 Mg) 1 tab Q4H PRN PO 06/03/16 13:45 ([place] 10-325 Mg) 2 tab Q4H PRN PO 06/03/16 13:45 (Flexeril) 10 mg Q8H PRN PO 06/03/16 13:45 (Catapres) 0.1 mg Q6H PRN PO 06/03/16 13:45 (Tylenol) 650 mg Q4H PRN PO 06/03/16 13:45 ([place] Janny) 1 lozenge UNSCH PRN BUCCAL 06/03/16 13:45 (Ambien) 5 mg HS PRN PO 06/03/16 13:45 (Miralax) 17 gm DAILY PO 06/04/16 09:00 06/04/16 07:56 (Compazine Inj) 10 mg Q6H PRN IV PUSH 06/03/16 14:00 (Neurontin) 200 mg TID PO 06/04/16 09:00 06/04/16 13:00 Lorazepam 0.5 mg 0.5 mg Q2H PRN IV PUSH 06/04/16 17:30 (D5W-NS 1000 ml Inj) 1,000 ml @ 50 mls/hr Q20H IV 06/04/16 23:00 06/04/16 22:54 (Morphine Inj) 2 mg Q3H PRN IV PUSH 06/05/16 10:45 Allergies Allergies Coded Allergies Adhesives (Verified Allergy, Severe, RASH, 05/27/16) Iodine (Verified Allergy, Severe, RASH, 05/27/16) Latex (Verified Allergy, Severe, 05/27/16) Shellfish (Verified Allergy, Severe, RASH, 05/27/16) Exam I&O / VS 06/04/16 06/04/16 06/05/16 15:00 23:00 07:00 Intake Total 1256 ml 485 ml 539 ml Output Total 150 ml 1000 ml 1250 ml Balance 1106 ml -515 ml -711 ml Intake Oral 480 ml 0 ml 0 ml IV Total 776 ml 485 ml 539 ml Output Urine Total 150 ml 1000 ml 1250 ml # Voids 1 Vital Signs Date Time Temp Pulse Resp B/P Pulse Ox O2 Delivery O2 Flow Rate FiO2 06/05/16 12:14 100 Nasal Cannula 2.00 06/05/16 12:00 97.8 88 19 123/60 98 06/05/16 12:00 88 06/05/16 10:00 72 06/05/16 08:00 98.6 69 22 119/59 97 06/05/16 08:00 69 06/05/16 07:00 95 Nasal Cannula 4.00 06/05/16 06:00 73 06/05/16 06:00 18 06/05/16 04:00 99.3 70 18 125/58 99 06/05/16 04:00 70 06/05/16 03:53 95 Nasal Cannula 4.00 06/05/16 02:00 77 06/05/16 00:00 100 Nasal Cannula 4.00 06/05/16 00:00 99.1 72 16 132/59 100 06/05/16 00:00 72 06/04/16 22:00 68 06/04/16 22:00 16 06/04/16 20:00 68 06/04/16 20:00 98.7 68 16 148/66 98 06/04/16 19:00 98 Nasal Cannula 6.00 06/04/16 17:23 98.1 60 20 140/59 100 06/04/16 16:48 98.8 71 16 137/65 94 Arterial Line 06/04/16 16:37 98.5 71 17 123/83 93 Arterial Line 06/04/16 15:47 95.7 50 17 105/53 98 Exam Comments More alert, follows commands CN 2-12 normal Motor 5/5 BUE and BLE. mild sustension tremor BUE but no myoclonus Objective Radiology Results CT cervical spine--mild to moderate spondylosis with no stenosis Micro and Labs Laboratory Tests Test 06/04/16 06/04/16 06/04/16 06/04/16 17:36 18:00 19:00 22:40 White Blood Count 7.6 Red Blood Count 2.72 Hemoglobin 8.3 Hematocrit 25.0 Mean Corpuscular Volume 91.9 Mean Corpuscular Hemoglobin 30.4 Mean Corpuscular Hemoglobin 33.1 Concent Red Cell Distribution Width 12.5 Platelet Count 153 Mean Platelet Volume 7.5 Sodium Level 144 Potassium Level 6.2 4.2 Chloride Level 115 Carbon Dioxide Level 26.4 Anion Gap 3 Blood Urea Nitrogen 12 Creatinine 0.66 Estimat Glomerular Filtration 86 Rate Random Glucose 95 Lactic Acid Level 1.0 Calcium Level 7.7 Magnesium Level 1.7 Total Bilirubin 0.4 Aspartate Amino Transf 34 (AST/SGOT) Alanine Aminotransferase 23 (ALT/SGPT) Alkaline Phosphatase 48 Troponin I LESS THAN 0.02 LESS THAN 0.02 Total Protein 5.5 Albumin 2.9 Urine Color LIGHT-YELLOW Urine Turbidity CLEAR Urine pH 5.5 Urine Specific [place] 1.005 Urine Protein NEG Urine Glucose (UA) NEG Urine Ketones NEG Urine Occult Blood NEG Urine Nitrite NEG Urine Bilirubin NEG Urine Urobilinogen LESS THAN 2.0 Urine Leukocyte Esterase NEG Urine RBC 1 Urine WBC LESS THAN 1 Urine Mucus FEW Nasal Screen MRSA (PCR) MRSA NOT DETECTED Ammonia 22 Thyroid Stimulating Hormone 0.873 3rd Gen Test 06/05/16 06/05/16 03:30 11:18 Troponin I LESS THAN 0.02 LESS THAN 0.02 Vitamin B12 Level 387 Valproic Acid (Depakene) Level 20 Potassium Level 4.1 Date/Time Procedure Status Source Growth 06/04/16 18:30 Aerobic Blood Culture - Preliminary Resulted Blood Peripheral NO GROWTH IN 1 DAY 06/04/16 18:30 Anaerobic Blood Culture - Preliminary Resulted Blood Peripheral NO GROWTH IN 1 DAY 06/04/16 18:00 Urine Culture - Preliminary Resulted Urine Catheterized Urine RESULTS PENDING Gurvinder Hong PhD Jun 05, 2016 15:09
[2016-06-05] MEDS: DEXT 5%-NACL 0.9% 1000 ML INJ 1,000 ML IV SCH (18:24)
[2016-06-05] MEDS: ACETAMINOPHEN 325 MG TAB PO PRN (18:24)
--- NOTE | 2016-06-05 18:53 | EKG ---
Date Performed: 06/05/2016 Time Performed: 11:14:24 PTAGE: 80 years EKG: Sinus rhythm . ST junctional depression is nonspecific Borderline ECG PREVIOUS TRACING : 05/27/2016 11.44 Compared to prior tracing no significant change DOCTOR: Benedicto Motta Interpretating Date/Time 06/05/2016 18:52:01
--- NOTE | 2016-06-05 19:19 | EKG ---
Date Performed: 06/04/2016 Time Performed: 18:40:20 PTAGE: 80 years EKG: Sinus rhythm . Normal ECG based on available leads Compared to prior tracing no significant change DOCTOR: Benedicto Motta Interpretating Date/Time 06/05/2016 19:17:57
[2016-06-05] MEDS: PRAVASTATIN SOD 40 MG TAB PO SCH (20:35)
[2016-06-05] MEDS: DONEPEZIL HCL 5 MG TAB PO SCH (20:35)
[2016-06-05] MEDS ORDERED: GABAPENTIN 100 MG CAP PO ONE (23:00)
[2016-06-06] VITALS (11 sets, daily range): BP systolic 90–133; BP diastolic 46–65; PULSE 64–85; RESP 14–24; TEMP 96.3–99; O2SAT 93–99
[2016-06-06 04:34] LABS: BASOPHIL % 0.4 % (0.0-2.0); EOSINOPHIL # 0.3 TH/MM3 (0-0.4); EOSINOPHIL % 3.2 % (0.0-4.0); HEMATOCRIT 28.6 % (35.0-46.0); HEMO FLAGS DIFF FINAL; LYMPHOCYTE # 1.3 TH/MM3 (1.0-4.8); MEAN CELL VOLUME 90.1 FL (80.0-100.0); MEAN CORPUSCULAR HEMOGLOBIN 30.8 PG (27.0-34.0); MEAN CORPUSCULAR HGB CONC 34.2 % (32.0-36.0); MONO % 9.2 % (0.0-8.0); NEUT % 72.2 % (16.0-70.0); PLATELET COUNT 207 TH/MM3 (150-450); RED BLOOD COUNT 3.17 MIL/MM3 (4.00-5.30); RED CELL DISTRIBUTION WIDTH 12.4 % (11.6-17.2); WHITE BLOOD COUNT 8.3 TH/MM3 (4.0-11.0)
[2016-06-06 04:46] LABS: ALKALINE PHOSPHATASE 54 U/L (45-117); ALT (GPT) 23 U/L (10-53); ANION GAP 7 MEQ/L (5-15); AST (GOT) 32 U/L (15-37); BICARBONATE 28.3 MEQ/L (21.0-32.0); BLOOD UREA NITROGEN 10 MG/DL (7-18); CHLORIDE 107 MEQ/L (98-107); GLOMERULAR FILTRATION RATE 77 ML/MIN (>89); MAGNESIUM 2.2 MG/DL (1.5-2.5); POTASSIUM 3.8 MEQ/L (3.5-5.1); SODIUM (NA) 142 MEQ/L (136-145); TOTAL BILIRUBIN ADULT 0.5 MG/DL (0.2-1.0)
--- NOTE | 2016-06-06 10:07 | HHI.CCPN ---
Subjective Remarks/Hospital Course Patient is a 80-year-old female with past medical history significant for dyslipidemia and previous back surgeries who underwent L4/L5 and L5/S1 TLIF with cage and pedicle screw fixation on 06/03/16. Postop period was unremarkable. Today afternoon patient was noted to have 2 episodes of seizure- like activity where she had tonic-clonic jerking of bilateral upper and lower extremities. She did not loose consciousness, and was able to follow commands through this. Patient was moved emergently to the ICU where she had 2 more episodes. Received total of 1 mg Ativan with resolution of symptoms. No history of seizure disorder, takes Neurontin for neuropathy. A stat CT of the head had been ordered, as well as a stat EEG. Loading dose of Keppra 1 gm given. Ruiz culture and blood work pending at this time. Neurology consult requested and d/w Dr. Hong SUBJ 06/05: EEG no seizure. According to neurology Dr. Hong, possible myoclonic jerks. Lab work unremarkable so far. No evidence of infection SUBJ 06/06: Antiepileptic medications were discontinued yesterday, as EEG was negative. No further episodes of vasovagal response. Patient subjectively feels better Objective Vital Signs Date Time Temp Pulse Resp B/P Pulse Ox O2 Delivery O2 Flow Rate FiO2 06/06/16 08:00 98.3 68 17 133/60 96 06/06/16 07:00 Nasal Cannula 1.00 06/04/16 13:45 21 Intake and Output 06/05/16 06/05/16 06/06/16 08:00 16:00 00:00 Intake Total 539 ml 1010 ml 683 ml Output Total 1250 ml 1550 ml 1300 ml Balance -711 ml -540 ml -617 ml Result Diagram: 06/06/16 0407 06/06/16 0407 Other Results Microbiology Date/Time Procedure Status Source Growth 06/04/16 18:00 Urine Culture - Final Complete Urine Catheterized Urine NO GROWTH IN 48 HOURS. Imaging CXR No acute disease Objective Remarks GEN: 80 yo female resting in bed HEENT: Normocephalic, atraumatic. NECK: Supple. No carotid bruits heard on auscultation. LUNGS: The lungs are clear to auscultation bilaterally. HEART: Regular rate and rhythm, normal S1, S2. ABDOMEN: Soft, nontender. Positive bowel sounds. SKIN: Reveals no cyanosis or erythema. NEUROLOGIC: She is awake, alert and oriented. Cranial nerves II-XII appear grossly intact. Normal speech. 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 Depakote started by Dr. Hong. Both Depakote and Keppra DC d 06/05/16 -Ativan 0.5 mg IV q 3 hours prn for myoclonus -Continue Neurontin. Hold Aggrenox -Post op management per Dr. Cummings RESP: -Nasal cannula oxygen to keep SaO2 >90% -DuoNeb q2 prn -EzPAP, Acapella, aggressive pulm toilet CV: -Normal saline IV fluids-DC today -Continue Statin -Monitor BP and HR -Episode of vasovagal syncope 06/05 with good response to Ephedrine GI: -Regular diet. Dc IV Protonix : Monitor renal function closely. Swan catheter. ID: -F/u blood urine and sputum cultures. Received perioperative antibiotics per HEME: -Monitor CBC, CMP, coags ENDO: -Electrolyte replacement per protocol PROPH: -Bilateral lower extremity SCDs. TEDs. Chemical DVT prophylaxis -start Lovenox 40 mg sq daily. Increase mobility LINES: -Utilize peripheral IVs, central line if needed Level 2 Ok to transfer to Neuro Floor from [facility] stand point. Will d/w patient's son Maykel Hoffman MD Jun 06, 2016 10:07
[2016-06-06] MEDS: DOCUSATE SODIUM 100 MG CAP PO SCH ×2 (11:06→22:06)
[2016-06-06] MEDS: GABAPENTIN 100 MG CAP PO SCH ×3 (11:06→17:40)
[2016-06-06] MEDS: MULTIVITAMIN TAB PO SCH (11:06)
[2016-06-06] MEDS: SODIUM CHLORIDE 0.9% FLUSH 10 ML FLUSH IV FLUSH SCH ×2 (11:07→22:07)
[2016-06-06] MEDS: POLYETHYLENE GLYCOL 17 GM PKG PO SCH (11:07)
[2016-06-06] MEDS: PANTOPRAZOLE SOD 40 MG DELAYED RELEASE TAB PO SCH (11:07)
--- NOTE | 2016-06-06 13:43 | HHI.PR ---
Review/Management Diagnosis myoclonus possible due to metabolic encephalopathy--now resolved Plan ok from neurology standpoint to transfer to floor Diagnosis/Plan: Subjective Subjective Comments No acute events reported No further myoclonus No syncope Active Medications Current Medications Medications (Trade) Dose Ordered Sig/Kristen Route Start Time Stop Time Status Last Admin (Aricept) 5 mg HS PO 06/03/16 21:00 06/05/16 20:35 (Theragran) 1 tab DAILY PO 06/04/16 09:00 06/06/16 11:06 (Zanaflex) 4 mg TID PO 06/03/16 18:00 06/04/16 12:59 Non-Formulary Medication 1 cap HS PO 06/06/16 21:00 UNV (Pravachol) 40 mg HS PO 06/03/16 21:00 06/05/16 20:35 Patient Own Medication PT OWN MED: Solifena... DAILY PO 06/04/16 09:00 Hold (Narcan Inj) 0.4 mg UNSCH PRN IV 06/03/16 13:45 (Benadryl Inj) 25 mg Q6H PRN IV 06/03/16 13:45 (NS Flush) 2 ml UNSCH PRN IV FLUSH 06/03/16 13:45 (NS Flush) 2 ml BID IV FLUSH 06/03/16 21:00 06/06/16 11:07 (Colace) 100 mg BID PO 06/03/16 21:00 06/06/16 11:06 (Milk Of Magnesia Liq) 30 ml DAILY PRN PO 06/03/16 13:45 (Mag-Al Plus Susp Liq) 30 ml Q6H PRN PO 06/03/16 13:45 06/05/16 18:39 (Protonix) 40 mg DAILY PO 06/04/16 09:00 06/06/16 11:07 Ondansetron HCl 4 mg 4 mg Q6H PRN IV 06/03/16 13:45 Calcium Gluconate 1 gm/Sodium Chloride 110 ml @ 110 mls/hr UNSCH PRN IV 06/03/16 13:45 Potassium Chloride 100 ml @ 50 mls/hr UNSCH PRN IV 06/03/16 13:45 (Magnesium Sulfate Inj/NS Inj) 104 ml @ 100 mls/hr UNSCH PRN IV 06/03/16 13:45 ([place] 10-325 Mg) 1 tab Q4H PRN PO 06/03/16 13:45 ([place] 10-325 Mg) 2 tab Q4H PRN PO 06/03/16 13:45 (Flexeril) 10 mg Q8H PRN PO 06/03/16 13:45 (Catapres) 0.1 mg Q6H PRN PO 06/03/16 13:45 (Tylenol) 650 mg Q4H PRN PO 06/03/16 13:45 06/05/16 18:24 ([place] Janny) 1 lozenge UNSCH PRN BUCCAL 06/03/16 13:45 (Ambien) 5 mg HS PRN PO 06/03/16 13:45 (Miralax) 17 gm DAILY PO 06/04/16 09:00 06/06/16 11:07 (Compazine Inj) 10 mg Q6H PRN IV PUSH 06/03/16 14:00 Lorazepam 0.5 mg 0.5 mg Q2H PRN IV PUSH 06/04/16 17:30 (D5W-NS 1000 ml Inj) 1,000 ml @ 50 mls/hr Q20H IV 06/04/16 23:00 06/05/16 18:24 (Morphine Inj) 2 mg Q3H PRN IV PUSH 06/05/16 10:45 (Neurontin) 100 mg TID PO 06/06/16 09:00 06/06/16 11:06 Allergies Allergies Coded Allergies Adhesives (Verified Allergy, Severe, RASH, 05/27/16) Iodine (Verified Allergy, Severe, RASH, 05/27/16) Latex (Verified Allergy, Severe, 05/27/16) Shellfish (Verified Allergy, Severe, RASH, 05/27/16) Exam I&O / VS 06/05/16 06/05/16 06/06/16 15:00 23:00 07:00 Intake Total 1010 ml 683 ml 536 ml Output Total 1550 ml 1300 ml 550 ml Balance -540 ml -617 ml -14 ml Intake Oral 70 ml 315 ml 120 ml IV Total 940 ml 368 ml 416 ml Output Urine Total 1550 ml 1300 ml 550 ml # Bowel Movements 0 0 0 Vital Signs Date Time Temp Pulse Resp B/P Pulse Ox O2 Delivery O2 Flow Rate FiO2 06/06/16 12:00 97.8 68 14 130/64 98 06/06/16 11:41 98 Nasal Cannula 2.00 06/06/16 08:00 98.3 68 17 133/60 96 06/06/16 07:00 96 Nasal Cannula 1.00 06/06/16 06:00 66 06/06/16 04:00 98.4 80 24 122/58 98 06/06/16 04:00 80 06/06/16 02:00 64 06/06/16 00:00 73 06/06/16 00:00 98.9 73 22 103/46 99 06/05/16 22:00 74 06/05/16 20:20 96 Nasal Cannula 2.00 06/05/16 20:00 72 06/05/16 20:00 99.0 72 19 108/52 97 06/05/16 19:00 97 Nasal Cannula 2.00 06/05/16 18:00 105 06/05/16 17:00 99 Nasal Cannula 2.00 06/05/16 16:00 73 06/05/16 16:00 98.3 73 22 120/58 99 06/05/16 14:00 87 Exam Comments follows commands CN 2-12 normal Motor 5/5 BUE and BLE. mild sustension tremor BUE but no myoclonus Objective Micro and Labs Laboratory Tests Test 06/06/16 04:07 White Blood Count 8.3 Red Blood Count 3.17 Hemoglobin 9.8 Hematocrit 28.6 Mean Corpuscular Volume 90.1 Mean Corpuscular Hemoglobin 30.8 Mean Corpuscular Hemoglobin 34.2 Concent Red Cell Distribution Width 12.4 Platelet Count 207 Mean Platelet Volume 7.5 Neutrophils (%) (Auto) 72.2 Lymphocytes (%) (Auto) 15.0 Monocytes (%) (Auto) 9.2 Eosinophils (%) (Auto) 3.2 Basophils (%) (Auto) 0.4 Neutrophils # (Auto) 6.0 Lymphocytes # (Auto) 1.3 Monocytes # (Auto) 0.8 Eosinophils # (Auto) 0.3 Basophils # (Auto) 0.0 CBC Comment DIFF FINAL Differential Comment Sodium Level 142 Potassium Level 3.8 Chloride Level 107 Carbon Dioxide Level 28.3 Anion Gap 7 Blood Urea Nitrogen 10 Creatinine 0.73 Estimat Glomerular Filtration 77 Rate Random Glucose 109 Calcium Level 9.1 Magnesium Level 2.2 Total Bilirubin 0.5 Aspartate Amino Transf 32 (AST/SGOT) Alanine Aminotransferase 23 (ALT/SGPT) Alkaline Phosphatase 54 Total Protein 6.0 Albumin 2.7 Date/Time Procedure Status Source Growth 06/04/16 18:30 Aerobic Blood Culture - Preliminary Resulted Blood Peripheral NO GROWTH IN 2 DAYS 06/04/16 18:30 Anaerobic Blood Culture - Preliminary Resulted Blood Peripheral NO GROWTH IN 2 DAYS 06/04/16 18:00 Urine Culture - Final Complete Urine Catheterized Urine NO GROWTH IN 48 HOURS. Gurvinder Hong PhD MD Jun 06, 2016 13:43
--- NOTE | 2016-06-06 14:07 | RADRPT ---
EXAM DATE/TIME: 06/06/2016 13:14 [place] COMPARISON: No previous studies available for comparison. INDICATIONS : Syncope. MEDICAL HISTORY : Peripheral vascular disease. Hypercholesterolemia. Arthritis. CVA. Hyperlipidemia. GERD. SURGICAL HISTORY : Cholecystectomy. Appendectomy. Hysterectomy. Bilateral cataract. Laminectomy. Right thumb. ENCOUNTER: Initial ACUITY: 1 day PAIN SCORE: 1/10 LOCATION: Bilateral neck PEAK SYSTOLIC VELOCITIES (cm/sec): ICA/CCA RATIO: Right: 2.6 Left: 1.8 ICA: Right: 178 Left: 149 CCA: Right: 69 Left: 85 ECA: Right: 61 Left: 69 VERTEBRAL: Right: 40 antegrade Left: 64 antegrade Elevated flow velocities and ICA/CCA ratios have been found to correlate with increased degrees of vessel stenosis, calculated as percentage of diameter relative to a normal segment of distal ICA/CCA FINDINGS: RIGHT CAROTID: Moderate calcified plaque at the right carotid bulb. LEFT CAROTID: Mild calcified plaque at the carotid bulb. VERTEBRAL ARTERIES: Antegrade flow is seen in both vertebral arteries. MISCELLANEOUS: None. CONCLUSION: Calcified plaque at the carotid bulbs bilaterally. Elevated peak systolic velocities in the right int ernal carotid artery suggesting moderate grade stenosis. Recommend CTA of the carotids for further ev aluation. Apolinar Hough MD on June 06, 2016 at 14:01 Board Certified Radiologist. This report was verified electronically.
--- NOTE | 2016-06-06 14:18 | HHI.NSPN ---
Note Status Status: Progress Note Interval History Interval History 06/04/16: Pt s/p L4/L5 and L5/S1 TLIF with cage and pedicle screw fixation on . 06/05/16: She was doing well but developed tonic-clonic jerking movements yesterday. Neurology was consulted and she was started on antiepileptics. EEG was negative. CT of the brain with some pneumocephalus. CT of the cervical spine showed multilevel spondylotic changes but no acute fractures. 06/06/16: Doing well today. No new complaints. Labs, Micro, & Vital Signs Results Date Time Temp Pulse Resp B/P Pulse Ox O2 Delivery O2 Flow Rate FiO2 06/06/16 12:00 97.8 68 14 130/64 98 06/06/16 12:00 68 06/06/16 11:41 98 Nasal Cannula 2.00 06/06/16 10:00 73 06/06/16 08:00 74 06/06/16 08:00 98.3 68 17 133/60 96 06/06/16 07:00 96 Nasal Cannula 1.00 06/06/16 06:00 66 06/06/16 04:00 98.4 80 24 122/58 98 06/06/16 04:00 80 06/06/16 02:00 64 06/06/16 00:00 73 06/06/16 00:00 98.9 73 22 103/46 99 06/05/16 22:00 74 06/05/16 20:20 96 Nasal Cannula 2.00 06/05/16 20:00 72 06/05/16 20:00 99.0 72 19 108/52 97 06/05/16 19:00 97 Nasal Cannula 2.00 06/05/16 18:00 105 06/05/16 17:00 99 Nasal Cannula 2.00 06/05/16 16:00 73 06/05/16 16:00 98.3 73 22 120/58 99 06/06/16 07:00 Intake Total 2229 ml Output Total 3400 ml Balance -1171 ml Constitutional Vital Signs Date Time Temp Pulse Resp B/P Pulse Ox O2 Delivery O2 Flow Rate FiO2 06/06/16 12:00 97.8 68 14 130/64 98 06/06/16 12:00 68 06/06/16 11:41 98 Nasal Cannula 2.00 06/06/16 10:00 73 06/06/16 08:00 74 06/06/16 08:00 98.3 68 17 133/60 96 06/06/16 07:00 96 Nasal Cannula 1.00 06/06/16 06:00 66 06/06/16 04:00 98.4 80 24 122/58 98 06/06/16 04:00 80 06/06/16 02:00 64 06/06/16 00:00 73 06/06/16 00:00 98.9 73 22 103/46 99 06/05/16 22:00 74 06/05/16 20:20 96 Nasal Cannula 2.00 06/05/16 20:00 72 06/05/16 20:00 99.0 72 19 108/52 97 06/05/16 19:00 97 Nasal Cannula 2.00 06/05/16 18:00 105 06/05/16 17:00 99 Nasal Cannula 2.00 06/05/16 16:00 73 06/05/16 16:00 98.3 73 22 120/58 99 06/06/16 07:00 Intake Total 2229 ml Output Total 3400 ml Balance -1171 ml Review of Systems/Exam Exam Heart: NSR no murmurs Abd: Soft positive bs Skin: No cyanosis or erythema Muscle: Upper extremities with strength 5 out of 5. In the lower extremities she is limited to pain but able to move them at least antigravity Neuro: Pt awake and alert. Follows commands well. Speech clear and appropriate. Wound: In good healing process and dry. Medical Decision Making MDM Remarks 80 y/o FM s/p L4/L5 and L5/S1 TLIF with cage and pedicle screw fixation. Yesterday with an episode of tonic-clonic movements but not clear evidence of epileptic activity. Dr. Hong from neurology following. Doing very well today. Pain well controlled. Plan Plan Remarks Continue with pain control Continue with PT Stable to be transferred out of the ICU Percy Narayan MD Jun 06, 2016 14:18
[2016-06-06] MEDS: DEXT 5%-NACL 0.9% 1000 ML INJ 1,000 ML IV SCH (15:00)
[2016-06-06] MEDS: ACETAMINOPHEN 325 MG TAB PO PRN (17:39)
[2016-06-06] MEDS ORDERED: QUININE 300 MG PO SCH (21:00)
[2016-06-06] MEDS ORDERED: [UNRECOGNIZED DRUG - OTHER] PO SCH (21:00)
[2016-06-06] MEDS: PRAVASTATIN SOD 40 MG TAB PO SCH (22:06)
[2016-06-06] MEDS: DONEPEZIL HCL 5 MG TAB PO SCH (22:06)
[2016-06-07] VITALS: BP 94/58; PULSE 75; RESP 17; TEMP 96.7; O2SAT 93
[2016-06-07 00:12] VITALS: O2SAT 98
[2016-06-07 04:00] VITALS: BP 117/53; PULSE 66; RESP 16; TEMP 97.8; O2SAT 94
[2016-06-07 08:00] VITALS: BP 111/60; PULSE 88; RESP 18; TEMP 96.3; O2SAT 96
[2016-06-07] MEDS: SODIUM CHLORIDE 0.9% FLUSH 10 ML FLUSH IV FLUSH SCH (08:02)
[2016-06-07] MEDS: PANTOPRAZOLE SOD 40 MG DELAYED RELEASE TAB PO SCH (08:02)
[2016-06-07] MEDS: DOCUSATE SODIUM 100 MG CAP PO SCH (08:02)
[2016-06-07] MEDS: POLYETHYLENE GLYCOL 17 GM PKG PO SCH (08:02)
[2016-06-07] MEDS: GABAPENTIN 100 MG CAP PO SCH ×2 (08:02→12:58)
[2016-06-07] MEDS: MULTIVITAMIN TAB PO SCH (08:02)
[2016-06-07] MEDS: DEXT 5%-NACL 0.9% 1000 ML INJ 1,000 ML IV SCH (08:12)
--- NOTE | 2016-06-07 09:51 | HHI.NSPN ---
(Martin Puentes) History Chief Complaint: Incisional back pain. (Martin Puentes) Interval History 06/04/16: Pt s/p L4/L5 and L5/S1 TLIF with cage and pedicle screw fixation on . She is sitting up in chair this morning. Complains of incisional pain controlled with CORRECTIONAL AGENCY DIRECTOR. She denies any radiculopathy in her legs so far. She has not ambulated far yet on POD 1. 06/07/16: Pt awakens to voice. Denies any low back pain or radiculopathy. No paresthesias in LEs. (Martin Puentes) Review of Systems General: Negative for: fever, chills, insomnia Respiratory: Negative for: shortness of breath, cough, sputum Cardiovascular: Negative for: chest pain Gastrointestinal: Negative for: nausea, vomitting, diarrhea, constipation ( Martin Puentes) Exam Results Vital Signs Date Time Temp Pulse Resp B/P Pulse Ox O2 Delivery O2 Flow Rate FiO2 06/07/16 08:00 96.3 88 18 111/60 96 06/06/16 11:41 Nasal Cannula 2.00 06/04/16 13:45 21 Intake and Output 06/06/16 06/06/16 06/07/16 08:00 16:00 00:00 Intake Total 896 ml 679 ml 240 ml Output Total 550 ml 850 ml 500 ml Balance 346 ml -171 ml -260 ml (Martin Puentes) Physical Examination Resp: CTA bilaterally. Heart: NSR no murmurs Abd: Soft positive bs Skin: No cyanosis or erythema. Bandage changed this morning. Clean and dry without signs of infection. Muscle: Upper extremities with strength 5 out of 5. Neuro: Pt awake and alert. Follows commands well. Speech clear and appropriate. (Martin Puentes) Lab, Micro, Other Results Last Impressions Carotid Artery Ultrasound 06/06/16 0000 Signed Impressions: Service Date/Time: Monday, June 06, 2016 13:14 - CONCLUSION: Calcified plaque at the carotid bulbs bilaterally. Elevated peak systolic velocities in the right internal carotid artery suggesting moderate grade stenosis. Recommend CTA of the carotids for further evaluation. Apolinar Hough MD Chest X-Ray 06/05/16 0600 Signed Impressions: Service Date/Time: Sunday, June 05, 2016 04:16 - CONCLUSION: Trace left base atelectasis. Veto Ferreira MD Head CT 06/04/16 0000 Signed Impressions: Service Date/Time: Saturday, June 04, 2016 17:51 - CONCLUSION: Intracranial air. The patient had recent lumbar surgery. No acute areas of hemorrhage or mass effect are seen. Veto Philippe MD Cervical Spine CT 06/04/16 0000 Signed Impressions: Service Date/Time: Saturday, June 04, 2016 21:13 - CONCLUSION: Degenerative change as described above. An acute bony abnormality is not seen. Veto Philippe MD Lumbar Spine X-Ray 06/03/16 0000 Signed Impressions: Service Date/Time: May 08:44 - CONCLUSION: Status post multilevel fusion. Douglas Jama MD 06/06/16 06/06/16 06/07/16 15:00 23:00 07:00 Intake Total 1039 ml 240 ml 240 ml Output Total 850 ml 500 ml 900 ml Balance 189 ml -260 ml -660 ml Intake Oral 860 ml 240 ml 240 ml IV Total 179 ml Output Urine Total 850 ml 500 ml 900 ml # Bowel Movements 0 1 0 (Martin Puentes) Medical Decision Making Impression and Plan A: 80 y/o FM s/p L4/L5 and L5/S1 TLIF with cage and pedicle screw fixation. P: Continue with pain control Continue with PT Rehab placement. (Martin Puentes) Attending Statement The exam, history, and the medical decision-making described in the above note were completed with the assistance of the mid-level provider. I reviewed and agree with the findings presented. I attest that I had a [id number] encounter with the patient on the same day, and personally performed and documented my assessment and findings in the medical record. (Demario Cummings MD) Martin Puentes June 07, 2016 09:51 Demario Cummings MD June 07, 2016 13:22
[2016-06-07] MEDS ORDERED: HYDR-3583 PO (11:24)
[2016-06-07] MEDS ORDERED: PANT40TA3 PO (11:24)
[2016-06-07 11:53] VITALS: BP 93/69; PULSE 65; RESP 18; TEMP 96.6; O2SAT 93
[2016-06-14] MEDS ORDERED: COMMODE 3-IN-11 MIS (11:58)
[2016-06-14] MEDS ORDERED: GETGO ROLLING W1 MI1 (11:58)
[2016-06-16] MEDS ORDERED: SIMV20TA PO (09:21)
[2016-06-16] MEDS ORDERED: PANT40TA3 PO (09:21)
[2016-06-16] MEDS ORDERED: ARIC5TAB PO (09:21)
[2016-06-16] MEDS ORDERED: MULT-135 PO (09:21)
[2016-06-16] MEDS ORDERED: DOCU1CAP39 PO (09:22)
[2016-06-16] MEDS ORDERED: TIZA4 PO (09:22)
[2016-06-16] MEDS ORDERED: NEUR300C PO (09:22)
[2016-06-16] MEDS ORDERED: HYDR-3516 PO (09:22)
--- NOTE | 2016-07-10 12:19 | HHI.DS ---
Discharge Summary Admission Date Jun 03, 2016 at 05:49 Discharge Date: June 07, 2016 Admitting Diagnosis (1) Low back pain Diagnosis: Principal ICD Code: M54.5 (2) Facet arthropathy, lumbar Diagnosis: Principal ICD Code: M12.88 (3) Lumbar degenerative disc disease Diagnosis: Principal ICD Code: M51.36 (4) Facet degeneration of lumbosacral region Diagnosis: Principal ICD Code: M47.817 (5) Scoliosis of lumbar spine Diagnosis: Principal ICD Code: M41.9 (6) Lumbar foraminal stenosis Diagnosis: Principal ICD Code: M99.83 (7) Spondylolisthesis of lumbar region Diagnosis: Principal ICD Code: M43.16 (8) Spondylolisthesis at L5-S1 level Diagnosis: Principal ICD Code: M43.17 Procedures Patient underwent a L4/L5 and L5/S1 transforaminal decompression with interbody fusion; L4 to S1 pedicle screw fixation; L4/L5 and L5/S1 interbody cage placement; L4/L5 and L5/S1 epidural scar tissue lysis by Demario Cummings MD on 06/03/16. Brief History This is a 80-year-old female who presented to our office for an evaluation of low back pain and left leg pain for 45 years. She states the pain radiates into the left posterior thigh and medial calf and then she gets cramps. She has a real bad episode of the right leg will also be affected. She states the left leg asael she has fallen 5-6 times over the last year from the pain. She has associated paresthesias in the left leg with the pain. She feels better with sitting. She has some frequently during the night secondary to pain. She has been to pain management a few years ago and had 2 sets of epidural steroid injections with Dr. Yepez. She has been to physical therapy which caused more pain. She has tried chiropractic treatments and acupuncture. She has also been seen in 2007 [facility] nonsurgical management. She states the pain has continued to get worse and she cannot live with her level of discomfort and activity restriction and she is requesting surgical intervention. Imaging MRI of the lumbar spine from 04/28/15 revealed extensive multilevel degenerative disc disease and facet arthropathy with associated multilevel spondylolisthesis and scoliosis. There is significant disc height collapse throughout the lumbosacral spine with a grade 1 L4/L5 spondylolisthesis. There is severe facet hypertrophy in the left L4/L5 level with associated severe foraminal stenosis. There is also facet hypertrophy at the L5/S1 level with disc protrusion and associated foraminal stenosis. Hospital Course Patient underwent the above-noted procedure performed by Demairo Cummings MD. there was no intraoperative complications. Postoperatively patient was admitted to the medical surgical floor. Physical therapy and occupational therapy were consulted the patient's activity status was increased. Patient's pain was controlled with a HEALTH SAFETY COORDINATOR. Patient was doing well until she developed tonic-clonic jerking of bilateral upper and lower extremities but did not lose consciousness. She was moved emergently to the ICU and had 2 more episodes. She received Ativan and her symptoms resolved. A stat CT of the head was ordered which did not reveal any hemorrhage or edema. Patient was placed on Keppra and EEG was obtained and neurology was consulted. Patient also had a syncopal episode without any jerking arm movements. Her antiepileptic medication were discontinued and her EEG was negative. She did not have any further episodes of syncope. She was transferred back to the medical surgical floor. Her activity status continued to improve. She was transferred to inpatient rehabilitation in stable condition. Pt Condition on Discharge: Stable Discharge Disposition: Rehab Inpatient Discharge Instructions DIET: Follow Instructions for: As Tolerated, No Restrictions ACTIVITIES You can perform: Shower Only-No Bath Activities to Avoid: Lifting/Bending, Strenuous Activity, Bathing, Driving ADDITIONAL Activity Instructio: Lumbar brace on when oob. Continued Medications: Quinine (Qualaquin) 324 Mg Cap 1 CAP PO DAILY Solifenacin (Vesicare) 5 Mg Tab 5 MG PO DAILY Urinary Symptom Managemen #30 Ref 0 TAB Discontinued Medications: Celecoxib (Celebrex) 200 Mg Cap 200 MG PO BID Pain Management Ref 0 CAP Dipyridamole-Aspirin (Aggrenox) 200-25 Mg Cap 1 CAP PO BID Prevent Blood Clot #60 Ref 0 CAP Hydrocodone-Acetaminophen (Gem) 5-325 mg Tab 1 TAB PO Q6H PRN PAIN Ref 0 TAB Meloxicam (Mobic) 15 Mg Tab 15 MG PO DAILY Arthritis pain Ref 0 TAB Martin Puentes Jul 10, 2016 12:19
[2016-07-27] MEDS ORDERED: DONE5TAB7 PO (08:20)
[2016-07-27] MEDS ORDERED: ONCETAB7 (08:20)
== END 2016-06-07 16:53 | DRG 459 ==
LOC: HSDI 06-03 05:49 → N06B 06-03 15:39 → N03A 06-04 17:05 → N06B 06-06 15:20
PROVIDERS: ADMIT Neurological Surgery; ATTEND Neurological Surgery
PROC: 0SG30AJ Fusion of Lumbosacral Joint with Interbody Fusion Device, Posterior Approach, Anterior Column, Open Approach (ICD-10-PCS; 2016-06-03)
PROC: 0ST20ZZ Resection of Lumbar Vertebral Disc, Open Approach (ICD-10-PCS; 2016-06-03)
PROC: 0ST40ZZ Resection of Lumbosacral Disc, Open Approach (ICD-10-PCS; 2016-06-03)
PROC: 00NT0ZZ Release Spinal Meninges, Open Approach (ICD-10-PCS; 2016-06-03)
PROC: 0SG00AJ Fusion of Lumbar Vertebral Joint with Interbody Fusion Device, Posterior Approach, Anterior Column, Open Approach (ICD-10-PCS; principal; 2016-06-03 08:17)
DX: M51.36 Other intervertebral disc degeneration, lumbar region (principal); G93.40 Encephalopathy, unspecified; G93.89 Other specified disorders of brain; G96.19 Other disorders of meninges, not elsewhere classified; G25.3 Myoclonus; G62.9 Polyneuropathy, unspecified; E78.5 Hyperlipidemia, unspecified; Z87.891 Personal history of nicotine dependence; M43.16 Spondylolisthesis, lumbar region; M43.17 Spondylolisthesis, lumbosacral region; M96.1 Postlaminectomy syndrome, not elsewhere classified; M51.37 Other intervertebral disc degeneration, lumbosacral region; M48.07 Spinal stenosis, lumbosacral region; Z91.040 Latex allergy status; Z91.013 Allergy to seafood; Z88.8 Allergy status to other drugs, medicaments and biological substances; Z91.09 Other allergy status, other than to drugs and biological substances; R55 Syncope and collapse; Z86.73 Personal history of transient ischemic attack (TIA), and cerebral infarction without residual deficits
CPT/HCPCS: 70450; 71010; 72100; 72125; 76000; 80048; 80053; 80164; 81001; 82140; 82607; 82948; 83605; 83735; 84132; 84443; 84484; 85025; 85027; 86850; 86900; 86901; 86920; 87040; 87086; 87641; 93005; 93880; 94150; 94640; 94667; 95819; C1713; J0171; J0461; J0610; J0690; J1815; J1953; J2060; J2250; J2270; J2405; J2710; J3010; J3370; J3475; J3480; J7040; J7042; J7050; J7120

== ENCOUNTER → 2016-05-27 | Outpatient (CLI) | payer MEDICARE ==
[~2016-05-27] MED LIST: AGGR20025 PO; ARIC5TAB PO; CELE200C PO; COMMODE 3-IN-11 MIS; DOCU1CAP39 PO; DONE5TAB7 PO; GABA100C4 PO; GETGO ROLLING W1 MI1; HYDR-3516 PO; HYDR-3583 PO; MOBI15TA PO; MULT-135 PO; NEUR300C PO; NORC5TAB PO; ONCETAB7; PANT40TA3 PO; SIMV20TA PO; TIZA4 PO; VESI5TAB PO; ZANA4CAP PO; [UNRECOGNIZED DRUG - CODE] PO
[2016-05-27 11:50] LABS: AUTOMATED NEUTROPHIL # 4.5 TH/MM3 (1.8-7.7); BASOPHIL % 0.6 % (0.0-2.0); EOSINOPHIL # 0.2 TH/MM3 (0-0.4); EOSINOPHIL % 2.5 % (0.0-4.0); HEMATOCRIT 37.7 % (35.0-46.0); HEMO FLAGS DIFF FINAL; LYMPH % 22.9 % (9.0-44.0); LYMPHOCYTE # 1.6 TH/MM3 (1.0-4.8); MEAN CELL VOLUME 90.4 FL (80.0-100.0); MEAN CORPUSCULAR HEMOGLOBIN 30.6 PG (27.0-34.0); MEAN CORPUSCULAR HGB CONC 33.9 % (32.0-36.0); MONO % 7.4 % (0.0-8.0); NEUT % 66.6 % (16.0-70.0); PLATELET COUNT 225 TH/MM3 (150-450); RED BLOOD COUNT 4.17 MIL/MM3 (4.00-5.30); RED CELL DISTRIBUTION WIDTH 12.7 % (11.6-17.2); WHITE BLOOD COUNT 6.8 TH/MM3 (4.0-11.0)
[2016-05-27 12:00] LABS: APTT (PATIENT) 27.8 SEC (24.3-30.1); INTERNATIONAL NORMALIZED RATIO 1.1 RATIO; PROTHROMBIN TIME - PATIENT 11.9 SEC (9.8-11.6)
[2016-05-27 12:17] LABS: ALKALINE PHOSPHATASE 58 U/L (45-117); ALT (GPT) 24 U/L (10-53); ANION GAP 8 MEQ/L (5-15); AST (GOT) 23 U/L (15-37); BICARBONATE 28.4 MEQ/L (21.0-32.0); BLOOD UREA NITROGEN 22 MG/DL (7-18); CHLORIDE 105 MEQ/L (98-107); GLOMERULAR FILTRATION RATE 51 ML/MIN (>89); GLUCOSE,FASTING 97 MG/DL (74-99); POTASSIUM 4.4 MEQ/L (3.5-5.1); SODIUM (NA) 141 MEQ/L (136-145); TOTAL BILIRUBIN ADULT 0.5 MG/DL (0.2-1.0)
--- NOTE | 2016-05-27 12:35 | RADRPT ---
EXAM DATE/TIME: 05/27/2016 12:16 [facility] COMPARISON: No previous studies available for comparison. INDICATIONS : Evaluate for pneumonia, pneumothorax or communicable disease. Pre op lumbar surgery. MEDICAL HISTORY : None. SURGICAL HISTORY : None. ENCOUNTER: Initial ACUITY: 1 day PAIN SCORE: 0/10 LOCATION: Bilateral chest FINDINGS: The heart and mediastinal structures are normal. The pulmonary vascular pattern is normal. The lung s are clear. Degenerative changes and scoliosis of the lumbar spine are noted. Old healed fracture of the lateral portion of the right seventh rib is noted. CONCLUSION: 1. No acute cardiopulmonary disease. 2. Degenerative changes and scoliosis of the thoracolumbar spine. Frankie Myles MD on May 27, 2016 at 12:23 Board Certified Radiologist. This report was verified electronically.
[2016-05-27 13:04] LABS: BLOOD, URINE NEG (NEG); GLUCOSE,URINE NEG (NEG); KETONE, URINE NEG (NEG); NITRITE,URINE NEG (NEG); URINE COLOR YELLOW (YELLW/STRAW)
[2016-05-27 13:30] LABS: COMMENT (UR) CULT NOT INDICATED; CULTURE IF INDICATED CULT NOT INDICATED
--- NOTE | 2016-05-28 20:21 | EKG ---
Date Performed: 05/27/2016 Time Performed: 11:44:47 PTAGE: 80 years EKG: SINUS BRADYCARDIA Compared to prior tracing no significant change BORDERLINE ECG NO PREVIOUS TRACING DOCTOR: Prem De La Cruz Interpretating Date/Time 05/28/2016 20:19:19
== END ==
LOC: CPRE 11:09
PROVIDERS: ATTEND Neurological Surgery
DX: Z01.812 Encounter for preprocedural laboratory examination (principal); Z01.811 Encounter for preprocedural respiratory examination; Z01.810 Encounter for preprocedural cardiovascular examination; M47.817 Spondylosis without myelopathy or radiculopathy, lumbosacral region; M51.36 Other intervertebral disc degeneration, lumbar region; M99.83 Other biomechanical lesions of lumbar region; M43.17 Spondylolisthesis, lumbosacral region; M43.16 Spondylolisthesis, lumbar region; R94.31 Abnormal electrocardiogram [ECG] [EKG]; Z79.01 Long term (current) use of anticoagulants
CPT/HCPCS: 36415; 71020; 80053; 81001; 85025; 85610; 85730; 93005

== ENCOUNTER 2017-03-09 16:14 | Emergency (ER) | payer MEDICARE ==
[~2017-03-09] VITALS: Ht 160 cm; Wt 71.0 kg
[~2017-03-09 16:14] MED LIST changes: -AGGR20025 PO; -ARIC5TAB PO; -CELE200C PO; +DONE5TAB7 PO; +ESTR42.5V VAGINAL; -GABA100C4 PO; +HYDR-3516 PO; -MOBI15TA PO; -MULT-135 PO; +NEUR300C PO; -NORC5TAB PO; +ONCETAB7; +PANT40TA3 PO; +TIZA4 PO; -VESI5TAB PO; +VESI5TAB2 PO; -ZANA4CAP PO; -[UNRECOGNIZED DRUG - CODE] PO
[2017-03-09 16:15] VITALS: BP 125/78; PULSE 67; RESP 16; TEMP 98.6; O2SAT 96
--- NOTE | 2017-03-09 16:38 | PD ---
HPI Chief Complaint: Neuro Symptoms/ Deficits Time Seen by Provider: 16:38 Travel History International Travel<30 days: Yes Contact w/Intl Traveler<30days: Yes Name of Country Traveled to: [place] Traveled to known affect area: No History of Present Illness HPI 81-year-old female came to the emergency room with history of some head pressure for past 4-5 days. Patient slipped and fell and hit her head about 3 weeks ago when she was in [place]. There she was found to have a small head bleed by CT and MRI. She was discharged home the next day. Patient is here because of her symptoms and to get a CAT scan to see if the bleeding has worsened. She is not on any blood thinners. Vital signs are stable. She is awake and answering questions appropriately. [facility] Past Medical History Narrative Medical List of her past medical, surgical, social and family history is reviewed from the nursing note. Arthritis: Yes Asthma: No Autoimmune Disease: No Anxiety: No Depression: No Heart Rhythm Problems: No Cancer: No Cardiovascular Problems: No High Cholesterol: Yes Chemotherapy: No Chest Pain: No Congestive Heart Failure: No COPD: No Cerebrovascular Accident: Yes (21 YEARS AGO) Diabetes: No Endocrine: No Gastrointestinal Disorders: Yes (GERD) GERD: Yes Genitourinary: No Hepatitis: No Hiatal Hernia: No Immune Disorder: No Kidney Stones: No Musculoskeletal: Yes (ARTHRITIS DEGENERATIVE) Neurologic: No Psychiatric: No Reproductive: No Respiratory: No Migraines: No Radiation Therapy: No Renal Failure: No Seizures: No Sickle Cell Disease: No Sleep Apnea: No Thyroid Disease: No Ulcer: No Past Surgical History Abdominal Surgery: Yes (CHOLECYSTECTOMY) AICD: No Appendectomy: Yes Arteriovenous Shunt: No Body Medical Devices: SCREWS AND PLATES TO BACK Cardiac Surgery: No Ear Surgery: No Endocrine Surgery: No Eye Surgery: Yes (BILAT. CAT. SX.) Genitourinary Surgery: Yes Gynecologic Surgery: Yes (HYSTERECTOMY,) Hysterectomy: Yes Insulin Pump: No Joint Replacement: No Oral Surgery: No Pacemaker: No Thoracic Surgery: No Social History Alcohol Use: Yes (SOCIAL) Tobacco Use: No Substance Use: No Allergies-Medications (Allergen,Severity, Reaction): Coded Allergies: adhesive (Verified Allergy, Severe, RASH, 03/09/17) iodine (Verified Allergy, Severe, RASH, 03/09/17) latex (Verified Allergy, Severe, 03/09/17) potassium iodide (Verified Allergy, Severe, RASH, 03/09/17) povidone-iodine (Verified Allergy, Severe, RASH, 03/09/17) shellfish derived (Verified Allergy, Severe, RASH, 03/09/17) sodium iodide (Verified Allergy, Severe, RASH, 03/09/17) sodium iodide (Verified Allergy, Severe, RASH, 03/09/17) Comments List of her allergies reviewed from the nursing appear Reported Meds & Prescriptions Reported Meds & Active Scripts Active Estrace Vaginal (Estradiol) 0.01% Cream 1 Gm VAGINAL HS Hydrocodone-Acetaminophen 5-325 mg Tab 1 Tab PO Q8HR PRN Zanaflex (Tizanidine HCl) 4 Mg Tab 2 Mg PO BID PRN Neurontin (Gabapentin) 300 Mg Cap 300 Mg PO TID Pantoprazole (Pantoprazole Sodium) 40 Mg Tab 40 Mg PO DAILY Simvastatin 20 Mg Tab 20 Mg PO DAILY Reported Gabapentin 100 Mg Cap 100 Mg PO TID Belviq (Lorcaserin) 10 Mg Tab 10 Mg PO BID [Tylenol Pm] Tizanidine (Tizanidine HCl) 4 Mg Cap 4 Mg PO TID Keppra (Levetiracetam) 500 Mg Tab 500 Mg BID Once Daily (Multivitamin) 1 Each Tablet Donepezil 5 Mg Tab 5 Mg PO HS Vesicare (Solifenacin) 5 Mg Tab 5 Mg PO DAILY Narrative Medication List of her home medications reviewed from the nursing note. Review of Systems Except as stated in HPI: all other systems reviewed are Neg Neurologic: Positive: Headache Physical Exam Narrative GENERAL: Awake, alert, no obvious distress SKIN: Focused skin assessment warm/dry. HEAD: Atraumatic. Normocephalic. EYES: Pupils equal and round. No scleral icterus. No injection or drainage. ENT: No nasal bleeding or discharge. Mucous membranes pink and moist. NECK: Trachea midline. No JVD. CARDIOVASCULAR: Regular rate and rhythm. No murmur appreciated. RESPIRATORY: No accessory muscle use. Clear to auscultation. Breath sounds equal bilaterally. GASTROINTESTINAL: Abdomen soft, non-tender, nondistended. Hepatic and splenic margins not palpable. MUSCULOSKELETAL: No obvious deformities. No clubbing. No cyanosis. No edema. NEUROLOGICAL: Awake and alert. No obvious cranial nerve deficits. Motor grossly within normal limits. Normal speech. PSYCHIATRIC: Appropriate mood and affect; insight and judgment normal. Data Data Last Documented VS Orders Orders Ct Brain W/O Iv Contrast(Rout) (03/09/17 ) Ed Discharge Order (03/09/17 17:47) [facility] Medical Decision Making Medical Screen Exam Complete: Yes Emergency Medical Condition: Yes Medical Record Reviewed: Yes Differential Diagnosis Worsening intracranial bleed, posttraumatic head Narrative Course 5:[address] scan does not show any new bleed. There is an area of encephalomalacia where the old lead was. I am comfortable discharging the patient home. Procedures EKG Prior to Arrival: No Diagnosis Primary Impression: Post-traumatic headache, unspecified, not intractable Qualified Codes: G44.319 - Acute post-traumatic headache, not intractable Referrals: Primary Care Physician Additional Instructions: Please return to the ER if condition worsens or any other new concerns. Otherwise follow up with your primary care. Med/Other Pt SpecificInfo: No Change to Meds Disposition: 01 DISCHARGE HOME Condition: Stable Shannon Galarza MD Mar 09, 2017 16:38
[2017-03-09] MEDS ORDERED: TYLENOL PM (16:50)
[2017-03-09] MEDS ORDERED: TIZA4CAP3 PO (16:50)
[2017-03-09] MEDS ORDERED: LORC10TA24 PO (16:50)
[2017-03-09] MEDS ORDERED: LEVE500 (16:50)
[2017-03-09] MEDS ORDERED: GABA100C4 PO (16:51)
--- NOTE | 2017-03-09 17:38 | RADRPT ---
EXAM DATE/TIME: 03/09/2017 17:21 [place] COMPARISON: CT BRAIN W/O CONTRAST, June 04, 2016, 17:51. INDICATIONS : Bleed from a fall two weeks ago,still having pain. RADIATION DOSE: 56.35 CTDIvol (mGy) MEDICAL HISTORY : Cerebrovascular disease. Peripheral vascular disease. SURGICAL HISTORY : Hysterectomy. ENCOUNTER: Initial ACUITY: 2 weeks PAIN SCALE: 3/10 LOCATION: cranial TECHNIQUE: Multiple contiguous axial images were obtained of the head. Using automated exposure control and adj ustment of the mA and/or kV according to patient size, radiation dose was kept as low as reasonably a chievable to obtain optimal diagnostic quality images. DICOM format image data is available electro nically for review and comparison. FINDINGS: CEREBRUM: Small area of encephalomalacia right frontal lobe. Patient had a previous bleed in this region on [place] or scan approximately 3 weeks previous in [place]. The ventricles are normal for age. No evidence of midline shift, mass lesion, hemorrhage or acute infarction. No extra-axial fluid collections are see n. POSTERIOR FOSSA: The cerebellum and brainstem are intact. The 4th ventricle is midline. The cerebellopontine angle i s unremarkable. EXTRACRANIAL: The visualized portion of the orbits is intact. SKULL: The calvaria is intact. No evidence of skull fracture. CONCLUSION: Small area of encephalomalacia right frontal lobe. Patient had a previous bleed in this region on [place] or scan approximately 3 weeks previous in [place]. No residual hemorrhage on current study. Martin Haas MD on March 09, 2017 at 17:34 Board Certified Radiologist. This report was verified electronically.
[2017-03-09 17:57] VITALS: BP 135/71
== END 2017-03-09 18:05 | disposition home or self-care (01) ==
LOC: NEPE 16:14
DX: G44.319 Acute post-traumatic headache, not intractable (principal); E78.00 Pure hypercholesterolemia, unspecified
CPT/HCPCS: 70450; 99284